=== PATIENT | male | born 1960 | race Caucasian/White ===

== ENCOUNTER 2018-02-01 13:45 | Observation (INO) ==
[2018-02-01 14:26] LABS: Basophils % 0.4 %; Eosinophils # 0.1 K/mcL (0.0-0.6); Eosinophils % 1.2 %; Hemoglobin 16.9 g/dL (12.9-16.9); Immature Granulocytes % 0.3 % (0-4); Lymphocytes # 1.5 K/mcL (0.6-4.6); Lymphocytes % 22.5 %; Mean Corpuscular HGB Conc 32.5 g/dL (31.6-35.5); Mean Corpuscular Hemoglobin 27.3 pg (28.0-33.3); Mean Platelet Volume 10.3 fL (9.4-12.4); Monocytes # 0.5 K/mcL (0.0-1.3); Monocytes % 7.9 %; Neutrophils # 4.5 K/mcL (1.6-8.9); Platelet Count 242 K/mcL (140-400); Red Blood Count 6.19 M/mcL (4.19-5.50); Red Cell Distribution Width 13.1 % (11.5-14.5); Segmented Neutrophils % 67.7 %
[2018-02-01 14:45] LABS: Troponin I < 0.03 ng/mL (< 0.04)
[2018-02-01] MEDS ORDERED: Aspirin 81 MG TAB.CHEW PO ONE (14:50)
[2018-02-01] MEDS ORDERED: 0.9 % Sodium Chloride 1,000 ML IVC ONE (14:51)
--- NOTE | 2018-02-01 14:57 | Emergency Department Note ---
Disposition Clinical Impression: Chest pain Qualifiers: Chest pain type: unspecified Qualified Code(s): R07.9 - Chest pain, unspecified Disposition: Admitted As Inpatient Condition: Fair Referrals: Fausto Palacios MD [Primary Care Provider] - Forms: ED Satisfaction Letter Time of Disposition: 16:04 Chest Pain HPI - General Chief Complaint: ED Chest Pain Stated Complaint: chest pain Time Seen by Provider: 02/01/18 14:35 Source: patient Limitations: no limitations Vital Signs Reviewed: Yes Nursing Notes Reviewed: Yes - History of Present Illness HPI Narrative: Patient is a 57-year-old male complains of acute onset of chest pain 2 hours ago. Patient states he has a history of prior stent placement 2 here at [facility] and was taken off Plavix 1 week ago. Patient states pain throughout 6 out of 10 that is a combination of sharp and burning sensation with radiation to his left armpit and left upper extremity. Patient states she has never had pain like this before and also admits to onset of some diaphoresis and feeling clammy. Patient also has history for diabetes, hypertension, hypercholesterolemia He states he has a history of anxiety as well but this feels different Severity scale (1-10): 3 - Related Data Home Medications Medication Instructions Recorded Confirmed Aspirin Enteric Coated [Aspirin EC] 81 mg PO DAILY 07/12/15 02/01/18 Escitalopram [Lexapro] 10 mg PO DAILY 07/12/15 02/01/18 Folic Acid 0.4 mg PO DAILY 07/12/15 02/01/18 Insulin Glargine,Hum.rec.anlog 80 unit SQ DAILY 07/12/15 02/01/18 [Lantus Solostar] Multivit with Iron-Minerals 1 each PO DAILY 07/12/15 02/01/18 [Compete] Pantoprazole Sodium 40 mg PO DAILY 07/12/15 02/01/18 Empagliflozin [Jardiance] 25 mg PO DAILY 02/01/18 02/01/18 Liraglutide [Victoza 3-Vito] 1.8 mg IJ DAILY 02/01/18 02/01/18 Lisinopril-HCTZ 10-12.5 [Prinzide 1 tab PO DAILY 02/01/18 02/01/18 10-12.5] Metformin HCl [Metformin HCl ER] 500 mg PO BID 02/01/18 02/01/18 Tramadol HCl [Ultram] 50 mg PO Q6H PRN 02/01/18 02/01/18 Previous Rx's Medication Instructions Recorded Atorvastatin [Lipitor] 80 mg PO HS #30 tablet 07/13/15 Clopidogrel [Plavix] 75 mg PO DAILY #30 tablet 07/13/15 Metoprolol [Lopressor] 25 mg PO BID #60 tablet 07/13/15 Allergies Allergy/AdvReac Type Severity Reaction Status Date / Time No Known Allergies Allergy Verified 02/01/18 14:02 All systems ED: reviewed and negative except as stated. Review of Systems: As Per HPI Constitutional: Denies: fever, chills, weakness ENT ED: Denies: congestion Cardiovascular: Reports: chest pain Respiratory: Denies: cough, dyspnea Gastrointestinal: Denies: abdominal pain Musculoskeletal: Denies: back pain Chest Pain PMH - Past Medical History Medical history: Reports: diabetes, hypertension Psychiatric history: Reports: anxiety - Social History Smoking Status: Never smoker Alcohol use: Reports: occasionally Drug use: Reports: none Physical Exam Vital Signs Temperature 99.0 F 02/01/18 13:58 Pulse Rate 80 02/01/18 13:58 Respiratory Rate 16 02/01/18 13:58 Blood Pressure 150/90 02/01/18 13:58 O2 Sat by Pulse Oximetry 97 02/01/18 13:58 Temperature 99.0 F 02/01/18 13:58 Pulse Rate 80 02/01/18 13:58 Respiratory Rate 16 02/01/18 13:58 Blood Pressure 150/90 02/01/18 13:58 O2 Sat by Pulse Oximetry 97 02/01/18 13:58 Oxygen Delivery Oxygen Delivery Room Air CONSTITUTIONAL: Well-appearing; well-nourished; A&O X 3, in no apparent distress HEAD: Normocephalic; atraumatic EYES: PERRL, no scleral icterus NOSE: The nose is normal in appearance without rhinorrhea NECK: No JVD or distended neck veins RESP: Normal chest excursion with respiration; breath sounds clear and equal bilaterally; no wheezes, rhonchi, or rales CARD: Regular rhythm, without murmurs, rub or gallop ABD: Non-distended; non-tender, soft, without rigidity, rebound or guarding,no pulsatile mass CHEST: No pain with palpation SKIN: Normal for age and race; warm and dry without diaphoresis ; no apparent lesions EXTREMITIES: Pulses are 2 plus and equal times 4 extremities, no peripheral edema or calf muscle pain - General Limitations: no limitations General appearance: alert, in no apparent distress Course Vital Signs Temperature 99.0 F 02/01/18 13:58 Pulse Rate 80 02/01/18 13:58 Respiratory Rate 16 02/01/18 13:58 Blood Pressure 150/90 02/01/18 13:58 O2 Sat by Pulse Oximetry 97 02/01/18 13:58 Temperature 99.0 F 02/01/18 13:58 Pulse Rate 72 02/01/18 15:53 Respiratory Rate 15 02/01/18 15:53 Blood Pressure 131/80 02/01/18 15:53 O2 Sat by Pulse Oximetry 98 02/01/18 15:53 Oxygen Delivery Oxygen Delivery Room Air Chest Pain - MDM Narrative Medical decision making narrative: Patient presents with concern for possible ACS/GA, patient denies any symptoms of shortness of breath or dyspnea on exertion for possible PE, patient also is low risk under Wells P criteria. Patient has no radiation of pain symptoms to his back or tearing sensation states his chest, as well as no pulse discrepancies for aortic dissection. Patient's labs were negative for any elevation of troponin or other lab abnormalities are clinically pertinent. Patient's pain symptoms were removed with nitroglycerin 0.4 milligrams sublingual 3. He reported a burning sensation around his stomach area and was given a GI cocktail as well. Also, EKG was nonischemic. Given patient's history and heart score of 6 and prior stenting, I feel it necessary patient to be admitted for continued cardiac evaluation. Patient understands and agrees to treatment plan. Dr. Kong the hospitalist has accepted patient for admission to a telemetry bed in stable condition and pain free. - Lab Data Lab results reviewed: Yes I reviewed the patient's lab results. Lab results narrative: Short CBC 02/01/18 Range/Units 14:05 WBC 6.7 (4.3-11.1) K/mcL Hgb 16.9 (12.9-16.9) g/dL Hct 52.0 H (37.5-50.1) % Plt Count 242 (140-400) K/mcL Neutrophils # 4.5 (1.6-8.9) K/mcL BMP 02/01/18 Range/Units 14:05 Sodium 136 (136-145) mEq/L Potassium 4.5 (3.5-5.1) mEq/L Chloride 102 (98-107) mEq/L Carbon Dioxide 24 (23-29) mEq/L BUN 20 (6-20) mg/dL Creatinine 0.89 (0.70-1.30) mg/dL Glucose 303 H (70-105) mg/dL Calcium 9.9 (8.6-10.3) mg/dL Cardiac Enzymes 02/01/18 Range/Units 14:05 Troponin I < 0.03 (< 0.04) ng/mL Result diagrams: 02/01/18 14:05 02/01/18 14:05 Lab Results 02/01/18 02/01/18 Range/Units 14:05 14:05 WBC 6.7 (4.3-11.1) K/mcL RBC 6.19 H (4.19-5.50) M/mcL Hgb 16.9 (12.9-16.9) g/dL Hct 52.0 H (37.5-50.1) % MCV 84.0 (83.0-100.0) fL MCH 27.3 L (28.0-33.3) pg MCHC 32.5 (31.6-35.5) g/dL RDW 13.1 (11.5-14.5) % Plt Count 242 (140-400) K/mcL MPV 10.3 (9.4-12.4) fL Immature Gran % 0.3 (0-4) % Seg Neutrophils % 67.7 % Lymphocytes % 22.5 % Monocytes % 7.9 % Eosinophils % 1.2 % Basophils % 0.4 % Neutrophils # 4.5 (1.6-8.9) K/mcL Lymphocytes # 1.5 (0.6-4.6) K/mcL Monocytes # 0.5 (0.0-1.3) K/mcL Eosinophils # 0.1 (0.0-0.6) K/mcL Basophils # 0.0 (0.0-0.2) K/mcL Sodium 136 (136-145) mEq/L Potassium 4.5 (3.5-5.1) mEq/L Chloride 102 (98-107) mEq/L Carbon Dioxide 24 (23-29) mEq/L BUN 20 (6-20) mg/dL Creatinine 0.89 (0.70-1.30) mg/dL Est GFR ( Amer) > 60 (> 60) Est GFR (Non-Af Amer) > 60 (> 60) BUN/Creatinine Ratio 22 (6-26) Glucose 303 H (70-105) mg/dL Calculated Osmolality 296 (280-300) Calcium 9.9 (8.6-10.3) mg/dL Troponin I < 0.03 (< 0.04) ng/mL - Radiology Data Radiology results reviewed: Yes I reviewed the patient's radiology results. Chest X-Ray 02/01/18 14:02 IMPRESSION: No acute cardiopulmonary disease. D/ / Reji Shelton MD / Reji Shelton MD Interpreting Provider: Reji Shelton MD - EKG Data EKG attestation: Yes I reviewed and interpreted this EKG. EKG results narrative: EKG taken 02/01/2018 at 1351 hrs. shows a sinus rhythm at a rate of 91 beats minute with no acute ST elevations or depressions and any meats, no cures Mariia QT prolongation. His also low voltage in leads 3. In compared to previous EKG taken 02/07/[address] elevations or depressions, or QRS widening, QT prolongation can be seen Heart Score - Score History: Highly Suspicious EKG: Non Specific repolarisation Disturbance Age: 45-65 Risk Factors: Equal/Greater than 3 risk factor or history of atherosclerotic disease Troponin: Less than normal limit HEART Score Total: 6
[2018-02-01 15:05] LABS: BUN/Creatinine Ratio 22 (6-26); Blood Urea Nitrogen 20 mg/dL (6-20); Calcium 9.9 mg/dL (8.6-10.3); Carbon Dioxide 24 mEq/L (23-29); Chloride 102 mEq/L (98-107); Glucose 303 mg/dL (70-105); Osmolality,Calculated 296 (280-300); Potassium 4.5 mEq/L (3.5-5.1); Sodium 136 mEq/L (136-145); eGFR For African Americans > 60 (> 60); eGFR For Non-African Americans > 60 (> 60)
[2018-02-01] MEDS: Nitroglycerin 0.4 MG TAB.SUBL SL PRN ×3 (15:11→15:24)
[2018-02-01] MEDS ORDERED: GI Cocktail 40 ML EACH PO ONE (15:37)
--- NOTE | 2018-02-01 15:56 | Emergency Department Note ---
Disposition Clinical Impression: Chest pain Qualifiers: Chest pain type: unspecified Qualified Code(s): R07.9 - Chest pain, unspecified Disposition: Admitted As Inpatient Condition: Fair Referrals: Fausto Palacios MD [Primary Care Provider] - Forms: ED Satisfaction Letter General Adult HPI - General Chief complaint: ED Chest Pain Stated complaint: chest pain Time Seen by Provider: 02/01/18 14:35 Source: patient Limitations: no limitations - History of Present Illness Pain Scale: 3 - Related Data Home Medications Medication Instructions Recorded Confirmed Aspirin Enteric Coated [Aspirin EC] 81 mg PO DAILY 07/12/15 02/01/18 Escitalopram [Lexapro] 10 mg PO DAILY 07/12/15 02/01/18 Folic Acid 0.4 mg PO DAILY 07/12/15 02/01/18 Insulin Glargine,Hum.rec.anlog 80 unit SQ DAILY 07/12/15 02/01/18 [Lantus Solostar] Multivit with Iron-Minerals 1 each PO DAILY 07/12/15 02/01/18 [Compete] Pantoprazole Sodium 40 mg PO DAILY 07/12/15 02/01/18 Empagliflozin [Jardiance] 25 mg PO DAILY 02/01/18 02/01/18 Liraglutide [Victoza 3-Vito] 1.8 mg IJ DAILY 02/01/18 02/01/18 Lisinopril-HCTZ 10-12.5 [Prinzide 1 tab PO DAILY 02/01/18 02/01/18 10-12.5] Metformin HCl [Metformin HCl ER] 500 mg PO BID 02/01/18 02/01/18 Tramadol HCl [Ultram] 50 mg PO Q6H PRN 02/01/18 02/01/18 Previous Rx's Medication Instructions Recorded Atorvastatin [Lipitor] 80 mg PO HS #30 tablet 07/13/15 Clopidogrel [Plavix] 75 mg PO DAILY #30 tablet 07/13/15 Metoprolol [Lopressor] 25 mg PO BID #60 tablet 07/13/15 Allergies Allergy/AdvReac Type Severity Reaction Status Date / Time No Known Allergies Allergy Verified 02/01/18 14:02 Constitutional: Denies: fever, chills, weakness ENT ED: Denies: congestion Cardiovascular: Reports: chest pain Respiratory: Denies: cough, dyspnea Gastrointestinal: Denies: abdominal pain Musculoskeletal: Denies: back pain Past Medical History - Past Medical History Medical history: Reports: diabetes, hypertension Psychiatric history: Reports: anxiety - Social History Smoking Status: Never smoker Smokeless Tobacco Status: Yes (rarely) Alcohol use: Reports: occasionally Drug use: Reports: none Physical Exam - General Limitations: no limitations General appearance: alert, in no apparent distress Course Vital Signs Temperature 99.0 F 02/01/18 13:58 Pulse Rate 80 02/01/18 13:58 Respiratory Rate 16 02/01/18 13:58 Blood Pressure 150/90 02/01/18 13:58 O2 Sat by Pulse Oximetry 97 02/01/18 13:58 Temperature 99.0 F 02/01/18 13:58 Pulse Rate 72 02/01/18 15:53 Respiratory Rate 15 02/01/18 15:53 Blood Pressure 131/80 02/01/18 15:53 O2 Sat by Pulse Oximetry 98 02/01/18 15:53 Oxygen Delivery Oxygen Delivery Room Air Medical Decision Making - Lab Data Result diagrams: 02/01/18 14:05 02/01/18 14:05 Lab Results 02/01/18 02/01/18 Range/Units 14:05 14:05 WBC 6.7 (4.3-11.1) K/mcL RBC 6.19 H (4.19-5.50) M/mcL Hgb 16.9 (12.9-16.9) g/dL Hct 52.0 H (37.5-50.1) % MCV 84.0 (83.0-100.0) fL MCH 27.3 L (28.0-33.3) pg MCHC 32.5 (31.6-35.5) g/dL RDW 13.1 (11.5-14.5) % Plt Count 242 (140-400) K/mcL MPV 10.3 (9.4-12.4) fL Immature Gran % 0.3 (0-4) % Seg Neutrophils % 67.7 % Lymphocytes % 22.5 % Monocytes % 7.9 % Eosinophils % 1.2 % Basophils % 0.4 % Neutrophils # 4.5 (1.6-8.9) K/mcL Lymphocytes # 1.5 (0.6-4.6) K/mcL Monocytes # 0.5 (0.0-1.3) K/mcL Eosinophils # 0.1 (0.0-0.6) K/mcL Basophils # 0.0 (0.0-0.2) K/mcL Sodium 136 (136-145) mEq/L Potassium 4.5 (3.5-5.1) mEq/L Chloride 102 (98-107) mEq/L Carbon Dioxide 24 (23-29) mEq/L BUN 20 (6-20) mg/dL Creatinine 0.89 (0.70-1.30) mg/dL Est GFR ( Amer) > 60 (> 60) Est GFR (Non-Af Amer) > 60 (> 60) BUN/Creatinine Ratio 22 (6-26) Glucose 303 H (70-105) mg/dL Calculated Osmolality 296 (280-300) Calcium 9.9 (8.6-10.3) mg/dL Troponin I < 0.03 (< 0.04) ng/mL Attestation Statement - Attestation Attestation: I examined this patient and my medical decision-making was reviewed with the Resident Physician. I agree with the documented findings, disposition and treatment plan as described except to the extent set forth below. 57 year old male presents to the ED with complaints of chest pain that is ismliar to her episodes in the past. PAtient states it has been getting progresssively worse with radtion and numbness.tingling of his left arm. Wew ill admit to medicine for cp r/o ACS. PAtinet troponin is negatie, EKG at baseline
--- NOTE | 2018-02-01 17:11 | Internal Med History&Physical ---
Date of Encounter: 02/01/18 Time of Encounter: 16:15 Assessment and Plan (1) Chest pain Current visit: Yes Status: Acute Patient presenting with central chest pressure that relieved with nitroglycerin. High suspicion for ACS and angina. Will monitor with telemetry. Trend troponins. If troponins are negative he will need a stress test tomorrow. Continue nitroglycerin as needed for pain. Continue aspirin. Was recently taken off Plavix. Will hold off on resuming this medication for now. Consider cardiology consult prior to discharge if stress test is negative to discuss about continuing Plavix. Monitor vital signs closely. Check lipid profile. Check A1c. high risk for complications. Qualifiers: Chest pain type: precordial pain Qualified Code(s): R07.2 - Precordial pain (2) Diabetes mellitus Current visit: Yes Status: Chronic Blood sugars are elevated. Check A1c. Monitor blood sugars and start patient on sliding scale insulin in addition to long-acting insulin coverage. 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 Continue home medications. Currently having chest pain. Management as above. Qualifiers: Coronary Disease-Associated Artery/Lesion type: [place] artery [place] vs. transplanted heart: [place] heart Associated angina: with stable angina Qualified Code(s): I25.118 - Atherosclerotic heart disease of [place] coronary artery with other forms of angina pectoris (4) Hypertension Current visit: Yes Status: Chronic Blood pressure was elevated initially. It has improved now. Will resume home medications. Monitor blood pressure closely. Qualifiers: Hypertension type: essential hypertension Qualified Code(s): I10 - Essential (primary) hypertension Internal Medicine - H&P: HPI Chief complaint: Chest pressure Admitted From: Emergency Dept Plans for Post Hospital Care: Home History of present illness: Mr. Montilla is a 57 year old male patient with history of coronary artery disease status post prior stents, diabetes, hypertension who presented to the ER with complaints of chest pressure that began at around 12:30 to 1 PM this afternoon. It was associated with some burning and began to radiate to his left axilla. He also felt some pain in his upper arm. He denies any palpitations. Did have mild shortness of breath associated with it. No fever or chills. No nausea or vomiting. His pain has improved after he received 3 doses of nitroglycerin and is now completely gone. He had a stent 2 years back and was on aspirin and Plavix until he was taken off Plavix 2 weeks back. He had undergone left heart catheterization then due to an abnormal stress test. Past Med Surg Social Fam HX - Past Medical History Attestation: Yes The following information was validated with the patient. Source: patient Medical history: diabetes, hypertension Psychiatric history: anxiety - Social History Smoking Status: Never smoker Smokeless Tobacco Status: Yes (rarely) Alcohol use: occasionally Drug use: none - Family History Father Adopted: No Living Status: Hx Family Cardiac Disorders: Yes Hx Family Respiratory Disorders: No Hx Family Cancer: Yes Hx Family GI Disorders: No Hx Family Endocrine Disorder: Yes Hx Family Neuromuscular Disorders: No Hx Family Neurologic Disorders: No Hx Family HEENT Disorders: No Hx Family Autoimmune Disorders: No - Additional Family History Additional family history: Reviewed with patient and found to be noncontributory at this time Internal Medicine - H&P: Meds Aspirin Enteric Coated [Aspirin EC] 81 mg PO DAILY 07/12/15 [History] Escitalopram [Lexapro] 10 mg PO DAILY 07/12/15 [History] Folic Acid 0.4 mg PO DAILY 07/12/15 [History] Insulin Glargine,Hum.rec.anlog [Lantus Solostar] 80 unit SQ DAILY 07/12/15 [ History] Multivit with Iron-Minerals [Compete] 1 each PO DAILY 07/12/15 [History] Pantoprazole Sodium 40 mg PO DAILY 07/12/15 [History] Atorvastatin [Lipitor] 80 mg PO HS #30 tablet 07/13/15 [Rx] Clopidogrel [Plavix] 75 mg PO DAILY #30 tablet 07/13/15 [Rx] Metoprolol [Lopressor] 25 mg PO BID #60 tablet 07/13/15 [Rx] Empagliflozin [Jardiance] 25 mg PO DAILY 02/01/18 [History] Liraglutide [Victoza 3-Vito] 1.8 mg IJ DAILY 02/01/18 [History] Lisinopril-HCTZ 10-12.5 [Prinzide 10-12.5] 1 tab PO DAILY 02/01/18 [History] Metformin HCl [Metformin HCl ER] 500 mg PO BID 02/01/18 [History] Tramadol HCl [Ultram] 50 mg PO Q6H PRN 02/01/18 [History] 3 Allergy/AdvReac Type Severity Reaction Status Date / Time No Known Allergies Allergy Verified 02/01/18 14:02 All Systems PM: A 10-system review of systems was performed and is negative for pertinent findings except as documented above in the HPI. - Constitutional Constitutional: no chills, no fever(s), no night sweats - EENT Eyes: no change in vision, no discharge, no pain, no photophobia Ears: no ear discharge, no ear pain, no tinnitus Nose, mouth and throat: no dysphagia, no nasal discharge, no neck pain, no sore throat - Cardiovascular Cardiovascular ROS IM: chest pain, no diaphoresis, no dyspnea, no lightheadedness, no palpitations, no syncope - Respiratory Respiratory: no cough, no dyspnea, no wheezing, no excessive phlegm production - Gastrointestinal Gastrointestinal: no abdominal pain, no diarrhea, no hematemesis, no hematochezia, no melena, no nausea, no vomiting - Musculoskeletal Musculoskeletal ROS IM: no numbness, no tingling - Integumentary Integumentary IM: no rash, no unusual bruising - Neurological Neurological ROS: no confusion, no convulsions, no focal weakness, no numbness, no tingling, no tremor(s) - Hematologic/Lymphatic Hematologic/Lymphatic: no easy bruising - Constitutional Vitals: Temp Pulse Resp BP Pulse Ox 99.0 F 76 15 124/84 16 02/01/18 13:58 02/01/18 16:39 02/01/18 16:39 02/01/18 16:39 02/01/18 16:39 General appearance: Present: cooperative, mild distress, A&O X 3, answers questions appropriately - Eye Eye exam: Present: EOMI, PERRL, conjuntiva pink, sclera anicteric - Neck Neck exam general surgery: Present: supple, trachea midline. Absent: lymphadenopathy - Respiratory Respiratory exam: Present: CTAB. Absent: accessory muscle use, rales, rhonchi, wheezes - Cardiovascular Cardiovascular exam: Present: RRR, +S1, +S2. Absent: diastolic murmur, gallop, rubs, systolic murmur - GI/Abdominal GI/Abdominal exam: Present: normal bowel sounds, soft, no peritoneal signs. Absent: distended, tenderness - Extremities Exam Extremities exam: Present: warm, radial pulses palpable and symmetrical. Absent : calf tenderness, cyanotic, pedal edema - Neurological Exam Neurological exam: Present: alert, CN II-XII intact, oriented X3, no focal deficits. Absent: facial droop, speech deficit - Skin Skin exam: Present: dry, intact Internal Med - H&P Results - Labs CBC & Chem 7: 02/01/18 14:05 02/01/18 14:05 - EKG Data -: EKG Interpreted by Myself EKG shows normal: sinus rhythm - EKG Data Interpretation IM: normal EKG
[2018-02-01] MEDS ORDERED: Naloxone 0.4 MG/ML INJ IVP PRN (17:18)
[2018-02-01] MEDS ORDERED: Acetaminophen 325 MG TABLET PO PRN (17:18)
[2018-02-01] MEDS ORDERED: *HR* Dextrose 50 % in Water (Syg) 50 ML SYRINGE IVP PRN (17:19)
[2018-02-01] MEDS ORDERED: Dextrose Gel 15 GM/37.5 ML TUBE PO PRN ×2 (17:19)
[2018-02-01] MEDS ORDERED: D5% in Water 1,000 ML IVC PRN (17:19)
[2018-02-01] MEDS: Insulin LISPRO 300 UNITS/3 ML VIAL SQ SCH ×2 (18:11→21:13)
[2018-02-01] MEDS: Insulin DETEMIR 100 UNIT/ML X5UNITS SQ SCH (21:14)
[2018-02-01 23:21] LABS: Estimated Average Glucose 171 mg/dl; Hemoglobin A1C 7.6 %
[2018-02-02 01:53] LABS: Chol/HDL Ratio 3.3 (0-4.9)
[2018-02-02] MEDS ORDERED: Regadenoson 0.4 MG/5 ML SYRINGE IVP ONE (05:45)
[2018-02-02] MEDS: Insulin LISPRO 300 UNITS/3 ML VIAL SQ SCH ×4 (10:02→22:30)
--- NOTE | 2018-02-02 13:06 | Cardiology Consult Note ---
Date of Encounter: 02/02/18 Time of Encounter: 11:30 Assessment and Plan (1) NSTEMI (non-ST elevated myocardial infarction) Current Visit: Yes Status: Acute Per cardiology: -Troponins negative x2, then 0.27 x2. -Known CAD. -Recently stopped plavix, had met criteria to stop plavix. -Exertional chest pain. -CHest pain free now. -No acute ischemic changes. -Suspect will need LHC. RIsks versus benefits of LHC explained to pateint. States understanding and agreeable to proceed. (2) CAD (coronary artery disease) Current Visit: Yes Status: Chronic Per cardiology: -Known history of CAD s/p LHC 2014 with 90% proximal LAD with SUMIT placed x2, 80 % mid LAD, 30% distal LAD, 70% ramus stenosis, 40% mid circumflex, 50-60% left PDA, 40% proximal RCA, 40% mid RCA, RPDA with mild disease. -TTE with LVEF preserved, no segmental wall motion abnormalities. -On asa, statin, beta bart, plavix. -Suspect will need LHC. Qualifiers: Coronary Disease-Associated Artery/Lesion type: [place] artery [place] vs. transplanted heart: [place] heart Associated angina: angina presence unspecified Qualified Code(s): I25.10 - Atherosclerotic heart disease of [place] coronary artery without angina pectoris Discussion w patient/family: The assessment and plan as outlined above was discussed with the patient who expressed understanding and agreement. All questions were answered. Thank you for involving us in the care of your patient. Please call with any questions. DIscussed and reviewed with . History of Present Illness Consult date: 02/02/18 Requesting physician: Genie Heaton Consult reason: elevated troponin Chief complaint: chest pain History of present illness: Mr. Montilla is a 57 year old male with a relevant past medical history of CAD s/ p PCI, HTN, hyperlipidemia, DM. Patient presented to [facility] with complaints of chest pain. Patient reports he stopped taking plavix one week ago and since then had noticed increase in fatigue. Patient states yesterday while walking around [employer], he had midsternal chest pain. Patient states pain persisted until he came to ER and was given 3 nitroglycerin. Patient denies current chest pain. Denies shortness of breath. Past Med Surg Social Fam HX - Past Medical History Attestation: Yes The following information was validated with the patient. Source: patient, old records reviewed Medical history: coronary artery disease, diabetes, hypertension Psychiatric history: anxiety - Social History Smoking Status: Never smoker Smokeless Tobacco Status: Yes (rarely) Alcohol use: occasionally Drug use: none - Family History Mother Living Status: Age at : 63 Cause of : [place] Hx Family Cardiac Disorders: Yes Hx Family Respiratory Disorders: No Hx Family Cancer: No Hx Family GI Disorders: No Hx Family Genitourinary Disorders: No Hx Family Endocrine Disorder: Yes (DM type 2) Hx Family Musculoskeletal Disorders: No Hx Family Neuromuscular Disorders: No Hx Family Neurologic Disorders: No Hx Family HEENT Disorders: No Hx Family Autoimmune Disorders: No Hx Family Reproductive Disorders: No Hx Family Psychosocial Disorders: No Hx Family Medical Disorders: No Father Adopted: No Living Status: Age at : 79 Cause of : [place] Hx Family Cardiac Disorders: Yes Hx Family Respiratory Disorders: No Hx Family Cancer: No Hx Family GI Disorders: No Hx Family Genitourinary Disorders: No Hx Family Endocrine Disorder: Yes (DM type 2) Hx Family Musculoskeletal Disorders: No Hx Family Neuromuscular Disorders: No Hx Family Neurologic Disorders: No Hx Family HEENT Disorders: No Hx Family Autoimmune Disorders: No Hx Family Reproductive Disorders: No Hx Family Psychosocial Disorders: No Hx Family Medical Disorders: No Medications and Allergies Aspirin Enteric Coated [Aspirin EC] 81 mg PO DAILY 07/12/15 [History] Escitalopram [Lexapro] 10 mg PO DAILY 07/12/15 [History] Folic Acid 0.4 mg PO DAILY 07/12/15 [History] Insulin Glargine,Hum.rec.anlog [Lantus Solostar] 80 unit SQ DAILY 07/12/15 [ History] Multivit with Iron-Minerals [Compete] 1 each PO DAILY 07/12/15 [History] Pantoprazole Sodium 40 mg PO DAILY 07/12/15 [History] Atorvastatin [Lipitor] 80 mg PO HS #30 tablet 07/13/15 [Rx] Clopidogrel [Plavix] 75 mg PO DAILY #30 tablet 07/13/15 [Rx] Metoprolol [Lopressor] 25 mg PO BID #60 tablet 07/13/15 [Rx] Empagliflozin [Jardiance] 25 mg PO DAILY 02/01/18 [History] Liraglutide [Victoza 3-Vito] 1.8 mg IJ DAILY 02/01/18 [History] Lisinopril-HCTZ 10-12.5 [Prinzide 10-12.5] 1 tab PO DAILY 02/01/18 [History] Metformin HCl [Metformin HCl ER] 500 mg PO BID 02/01/18 [History] Tramadol HCl [Ultram] 50 mg PO Q6H PRN 02/01/18 [History] 3 Allergy/AdvReac Type Severity Reaction Status Date / Time No Known Allergies Allergy Verified 02/01/18 14:02 All Systems Review: The remainder of the systems were reviewed and are negative - Constitutional Constitutional: fatigue - Cardiovascular Cardiovascular: as per HPI, chest pain with exertion Physical Examination Vital Signs, Last 4 Hours Temp Pulse Resp BP Pulse Ox 02/02/18 11:19 98.5 F 72 20 128/83 96 General: Conversant, No Apparent Distress HEENT: Atraumatic, Normocephaly, Mucus Membranes Moist Neck: No JVD, Normal carotid pulses Cardiac: Reg Rate and Rhythm, Normal S1 and S2, No Murmur Lungs: Normal Breath Sounds, No Wheeze, Rales, Rhonchi Neuro: Alert and responsive, No focal deficits noted Abdomen: Soft, Non-Tender Skin: No rashes noted on visualized skin Musculoskeletal: No Chest Wall Tenderness Extremities: No Clubbing, No Cyanosis, No Edema, Normal Pulses Results 02/01/18 14:05 02/01/18 14:05 Lab Results Impressions Chest X-Ray 02/01/18 14:02 IMPRESSION: No acute cardiopulmonary disease. D/ / Reji Shelton MD / Reji Shelton MD Interpreting Provider: Reji Shelton MD Echocardiogram 02/02/18 09:00 Impressions: LVEF 60%. Normal right ventricular structure and function. No significant valvular dysfunction. No pulmonary hypertension. Left Ventricular Wall Motion: Rest Echo Findings All wall segments showed normal motion. Findings: Study Quality * Technically adequate exam. ECG Findings * Normal sinus rhythm. Left Ventricle * LVEF 60%. * Normal LV chamber size, wall thickness and function. * Indeterminate diastolic function. Right Ventricle * Normal right ventricular structure and function. Left Atrium * Normal left atrial size. Right Atrium * Normal right atrial size. Aortic Valve * No aortic regurgitation. * Aortic valve not well visualized. * No aortic stenosis. Mitral Valve * No mitral stenosis. * Trace mitral regurgitation. * Normal mitral valve structure. Tricuspid Valve * Tricuspid valve not well visualized. * Trace tricuspid regurgitation. * Estimated RA pressure is 3 mmHg. * Estimated RVSP is 14 mmHg. * No pulmonary hypertension. Pulmonic Valve * Pulmonic valve is not well visualized. * No pulmonic stenosis. * Trace pulmonic regurgitation. Pulmonary Artery * Pulmonary artery not well visualized. Aorta * Normally sized aortic root. Pericardium * There is no pericardial effusion present. Interatrial Septum * No evidence of PFO by color Doppler. IVC * Normal IVC dimensions and inspiratory collapse. Active Medications Acetaminophen (Tylenol) 650 mg PO Q6HR PRN PRN Reason: Mild Pain/Fever Stop: 08/03/18 17:19 Aspirin (Aspirin Ec) 81 mg PO DAILY [facility]AL[facility] Stop: 08/04/18 09:01 Atorvastatin Calcium (Lipitor) 80 mg PO HS NATALY Stop: 08/03/18 21:01 Last Admin: 02/01/18 20:25 Dose: 80 mg Clopidogrel Bisulfate (Plavix) 75 mg PO DAILY NATALY Stop: 08/04/18 09:01 Dextrose/Water (Dextrose 50% (Syg)) 25 ml IVP AD PRN PRN Reason: Hypoglycemia Stop: 08/03/18 17:20 Escitalopram Oxalate (Lexapro) 10 mg PO DAILY NATALY Stop: 08/04/18 09:01 Folic Acid (Folic Acid) 0.4 mg PO DAILY NATALY Stop: 08/04/18 09:01 Glucagon (Glucagen) 1 mg IM ONCE PRN PRN Reason: Hypoglycemia Stop: 08/03/18 17:20 Glucose (Gluctose) 15 gm PO ONCE PRN PRN Reason: Hypoglycemia Stop: 08/03/18 17:20 Glucose (Gluctose) 30 gm PO ONCE PRN PRN Reason: Hypoglycemia Stop: 08/03/18 17:20 Lisinopril/HCTZ (Prinzide 10-12.5) 1 each PO DAILY NATALY Stop: 08/04/18 09:01 Dextrose (Dextrose 5%) 1,000 mls @ 100 mls/hr IVC .Q10H PRN PRN Reason: HYPOGLYCEMIA Stop: 08/03/18 17:20 Insulin Detemir (Levemir) 40 unit SQ BID [facility] Stop: 08/03/18 21:01 Last Admin: 02/01/18 21:14 Dose: 40 unit Insulin Human Lispro (Humalog) 0 units SQ HS [facility] PRN Reason: Protocol Stop: 08/03/18 21:01 Last Admin: 02/01/18 21:13 Dose: 5 units Insulin Human Lispro (Humalog) 0 units SQ TIDAC [facility] PRN Reason: Protocol Stop: 08/03/18 17:31 Last Admin: 02/02/18 10:02 Dose: Not Given Metoprolol Tartrate (Lopressor) 25 mg PO BID [facility] Stop: 08/03/18 21:01 Last Admin: 02/01/18 20:25 Dose: 25 mg Multivitamins/Calcium (Thera M Plus) 1 tab PO DAILY [facility] Stop: 08/04/18 09:01 Naloxone HCl (Narcan) 0.4 mg IVP Q2MIN PRN PRN Reason: SEE COMMENTS Stop: 08/03/18 17:19 Nitroglycerin (Nitroglycerin) 0.4 mg SL Q5MIN PRN PRN Reason: Chest Pain Stop: 08/03/18 14:52 Last Admin: 02/01/18 15:24 Dose: 0.4 mg Omeprazole (Prilosec) 40 mg PO DAILY [facility] Stop: 08/04/18 09:01 Tramadol HCl (Ultram) 50 mg PO Q6H PRN PRN Reason: Moderate Pain Stop: 08/03/18 17:21 Laboratory Tests 02/01/18 02/01/18 02/01/18 14:05 14:05 18:26 Hgb 16.9 Creatinine 0.89 Troponin I < 0.03 < 0.03 02/02/18 02/02/18 01:11 07:23 Hgb Creatinine Troponin I 0.27 H* 0.27 H* - Imaging and Cardiology Chest Xray: report reviewed Echo: report reviewed Cardiac cath: report reviewed - EKG Interpretation EKG results cardiology: personally reviewed (ECG with SR, HR 91.), other ( Telemetry reviewed with average HR previous 12 hours noted to be 62, SR. PVCs noted.) Consult Discharge Plan - Plan Referrals: Fausto Palacios MD [Primary Care Provider] - 02/10/18 5:00 pm
[2018-02-02] MEDS ORDERED: *HR* Heparin 5,000 UNIT/ML VIAL IVP PRN ×2 (13:22)
[2018-02-02] MEDS ORDERED: *HR* Heparin 5,000 UNIT/ML VIAL IVP ONE (13:22)
[2018-02-02] MEDS ORDERED: Heparin 25,000 UNIT/500 ML D5W 25,000 UNIT/500 ML BAG IVC SCH (13:30)
[2018-02-02 13:51] LABS: Hematocrit 51.2 % (37.5-50.1); Hemoglobin 16.9 g/dL (12.9-16.9); Mean Corpuscular Hemoglobin 27.8 pg (28.0-33.3); Mean Corpuscular Volume 84.1 fL (83.0-100.0); Mean Platelet Volume 10.2 fL (9.4-12.4); Platelet Count 231 K/mcL (140-400); Red Blood Count 6.09 M/mcL (4.19-5.50); Red Cell Distribution Width 13.2 % (11.5-14.5)
[2018-02-02 13:55] LABS: INR 1.1; Prothrombin Time 11.5 Seconds (9.4-12.1)
[2018-02-02 13:57] LABS: Activated Partial Thrombo Time 28.5 Seconds (26.0-36.0)
[2018-02-02] MEDS: Aspirin Enteric Coated 81 MG Tablet PO SCH (14:33)
[2018-02-02] MEDS: Multivit/Ca/Min/Fe/FA 1 TAB TABLET PO SCH (14:39)
[2018-02-02] MEDS: Insulin DETEMIR 100 UNIT/ML X5UNITS SQ SCH ×2 (14:39→22:58)
[2018-02-02] MEDS: Folic Acid 1 MG TABLET PO SCH (14:39)
[2018-02-02] MEDS ORDERED: 0.9 % Sodium Chloride 1,000 ML ONE ×2 (16:47→17:31)
--- NOTE | 2018-02-02 17:24 | Pre-Sedation Evaluation ---
Pre-sedation evaluation - Pre-sedation checklist Date of procedure: 02/02/18 Procedure: LEFT HEART CATH Recent Vitals: Last Vital Signs Temp 97.9 F 02/02/18 15:26 Pulse 69 02/02/18 15:26 Resp 20 02/02/18 15:26 BP 139/90 02/02/18 15:26 Pulse Ox 99 02/02/18 15:26 H&P (including ROS) documented in medical record: Yes Previous reaction to sedatives/anesthetics: No Dietary Status: NPO after Midnight Airway Assessment: Patient can open mouth completely, TMJ function normal, Micrognathia (under-bite, receding chin) absent, Neck with adequate range of motion Dentition: No loose teeth or bridges Possible difficult airway: No ASA Classification *see protocol: CLASS II-Mild systemic disease Plan of Care: Pt appropriate candidate for procedure/moderate/conscious sedation , Risks/benefits of procedure/sedation discussed w/ patient/family
[2018-02-02] MEDS ORDERED: Heparin 1,000 UNITS/500 mL 500 ML ONE (17:31)
[2018-02-02] MEDS ORDERED: *HR* Heparin 10,000 UNIT/10 ML VIAL ONE (17:32)
[2018-02-02] MEDS ORDERED: ISOVUE-370 200 ML INFUS..BTL IV ONE (17:32)
[2018-02-02] MEDS ORDERED: Nitroglycerin 1,000 MCG/10 ML VIAL IV ONE (17:32)
[2018-02-02] MEDS ORDERED: *HR* Midazolam HCl 2 MG/2 ML VIAL ONE (18:04)
[2018-02-02] MEDS ORDERED: *HR* FentaNYL (PF) 100 MCG/2 ML VIAL ONE (18:04)
[2018-02-02] MEDS ORDERED: *HR* Ticagrelor 90 MG TABLET ONE (18:42)
[2018-02-02] MEDS ORDERED: *HR* Bivalirudin 250 MG VIAL IVC ONE (18:42)
--- NOTE | 2018-02-02 19:40 | Internal Med Progress Note ---
Date of Encounter: 02/02/18 Time of Encounter: 10:20 - Assessment and plan (1) Chest pain Current Visit: Yes Status: Acute Assessment and plan: Patient admitted for chest pain that was concerning for coronary artery disease , ACS, angina. She had 2 negative troponins, subsequent troponins elevated to 0.24. Chest x-ray was negative. A1c 7.6%, triglycerides elevated at 248, cholesterol within normal limits at 92. He denied any chest pain, pressure, shortness of breath. A stress test was canceled due to elevated troponins. Cardiology was consulted, [facility] performed today. Only sedation note is available at this time. Patient reports a burning in his left chest that radiated to left axilla and left arm. He reports feeling clammy at the time. He denies any shortness of breath, nausea or vomiting. Patient's Plavix was stopped approximately 1 week ago by cardiology, he did remain on aspirin daily. Chest X-Ray 02/01/18 14:02 IMPRESSION: No acute cardiopulmonary disease. D/ / Reji Shelton MD / Reji Shelton MD Interpreting Provider: Reji Shelton MD Echocardiogram 02/02/18 09:00 Impressions: LVEF 60%. Normal right ventricular structure and function. No significant valvular dysfunction. No pulmonary hypertension. Left Ventricular Wall Motion: Rest Echo Findings All wall segments showed normal motion. Findings: Study Quality * Technically adequate exam. ECG Findings * Normal sinus rhythm. Left Ventricle * LVEF 60%. * Normal LV chamber size, wall thickness and function. * Indeterminate diastolic function. Right Ventricle * Normal right ventricular structure and function. Left Atrium * Normal left atrial size. Right Atrium * Normal right atrial size. Aortic Valve * No aortic regurgitation. * Aortic valve not well visualized. * No aortic stenosis. Mitral Valve * No mitral stenosis. * Trace mitral regurgitation. * Normal mitral valve structure. Tricuspid Valve * Tricuspid valve not well visualized. * Trace tricuspid regurgitation. * Estimated RA pressure is 3 mmHg. * Estimated RVSP is 14 mmHg. * No pulmonary hypertension. Pulmonic Valve * Pulmonic valve is not well visualized. * No pulmonic stenosis. * Trace pulmonic regurgitation. Pulmonary Artery * Pulmonary artery not well visualized. Aorta * Normally sized aortic root. Pericardium * There is no pericardial effusion present. Interatrial Septum * No evidence of PFO by color Doppler. IVC * Normal IVC dimensions and inspiratory collapse. Qualifiers: Chest pain type: precordial pain Qualified Code(s): R07.2 - Precordial pain (2) CAD (coronary artery disease) Current Visit: Yes Status: Chronic Assessment and plan: She was prior stents, AR, known coronary artery disease. Patient's Plavix was stopped one week ago, he continues to take aspirin. LHC today. Continue aspirin, Lipitor, Prinzide, beta bart. Qualifiers: Coronary Disease-Associated Artery/Lesion type: [place] artery [place] vs. transplanted heart: [place] heart Associated angina: angina presence unspecified Qualified Code(s): I25.10 - Atherosclerotic heart disease of [place] coronary artery without angina pectoris (3) Diabetes mellitus Current Visit: Yes Status: Chronic Assessment and plan: Uncontrolled diabetes. Hemoglobin A1c is 7.6%. Continue sliding scale insulin , Accu-Cheks before meals and at bedtime, diabetic diet. Qualifiers: Diabetes mellitus type: type 2 Diabetes mellitus lobsterman insulin use: with lobsterman use Diabetes mellitus complication status: with hyperglycemia Qualified Code(s): E11.65 - Type 2 diabetes mellitus with hyperglycemia; Z79.4 - assisted (current) use of insulin; Z79.4 - lobsterman (current) use of insulin; Z79.4 - lobsterman (current) use of insulin; Z79.4 - assisted (current ) use of insulin (4) Hypertension Current Visit: Yes Status: Chronic Assessment and plan: Chronic. Continue home medications. Well controlled in the hospital. Qualifiers: Hypertension type: essential hypertension Qualified Code(s): I10 - Essential (primary) hypertension - Time Spent With Patient less than 15 minutes - Subjective Interval history: Pt was seen and assessed at 1020 a.m. Pt denied chest pain, SOB, n/v, diaphoresis, abd pain. Pt is aware that he will most likely require an LHC today and is in agreement. He denies any other needs or questions and is aware that he will likely be here overnight again. - Constitutional Vitals: Temp Pulse Resp BP Pulse Ox 97.9 F 69 20 139/90 99 02/02/18 15:26 02/02/18 15:26 02/02/18 15:26 02/02/18 15:26 02/02/18 15:26 General appearance: Present: cooperative, mild distress, A&O X 3, answers questions appropriately - Head Head exam: Present: atraumatic, normal inspection, normocephalic - Eye Eye exam: Present: normal appearance, conjuntiva pink, sclera anicteric - Neck Neck exam general surgery: Present: normal inspection, supple, trachea midline - Respiratory Respiratory exam: Present: CTAB. Absent: accessory muscle use, chest wall tenderness, rales, respiratory distress, rhonchi, wheezes - Cardiovascular Cardiovascular exam: Present: RRR, +S1, +S2. Absent: diastolic murmur, gallop, rubs, systolic murmur - GI/Abdominal GI/Abdominal exam: Present: normal bowel sounds, soft. Absent: distended, hepatomegaly, tenderness - Extremities Exam Extremities exam: Present: normal capillary refill, normal inspection, warm, radial pulses palpable and symmetrical. Absent: calf tenderness, cyanotic, pedal edema, tenderness - Neurological Exam Neurological exam: Present: alert, oriented X3, no focal deficits. Absent: facial droop, speech deficit - Skin Skin exam: Present: dry, intact, normal color, warm. Absent: rash Internal Medicine: Result - Labs CBC & Chem 7: 02/02/18 13:34 02/01/18 14:05 Labs: Short CBC 02/02/18 Range/Units 13:34 WBC 6.9 (4.3-11.1) K/mcL Hgb 16.9 (12.9-16.9) g/dL Hct 51.2 H (37.5-50.1) % Plt Count 231 (140-400) K/mcL Cardiac Enzymes 02/02/18 02/02/18 Range/Units 01:11 07:23 Troponin I 0.27 H* 0.27 H* (< 0.04) ng/mL - ABG Interpretation ABG results: PT/INR, D-dimer PT 11.5 Seconds (9.4-12.1) 02/02/18 13:34 - Impressions Impressions Echocardiogram 02/02/18 09:00 Impressions: LVEF 60%. Normal right ventricular structure and function. No significant valvular dysfunction. No pulmonary hypertension. Left Ventricular Wall Motion: Rest Echo Findings All wall segments showed normal motion. Findings: Study Quality * Technically adequate exam. ECG Findings * Normal sinus rhythm. Left Ventricle * LVEF 60%. * Normal LV chamber size, wall thickness and function. * Indeterminate diastolic function. Right Ventricle * Normal right ventricular structure and function. Left Atrium * Normal left atrial size. Right Atrium * Normal right atrial size. Aortic Valve * No aortic regurgitation. * Aortic valve not well visualized. * No aortic stenosis. Mitral Valve * No mitral stenosis. * Trace mitral regurgitation. * Normal mitral valve structure. Tricuspid Valve * Tricuspid valve not well visualized. * Trace tricuspid regurgitation. * Estimated RA pressure is 3 mmHg. * Estimated RVSP is 14 mmHg. * No pulmonary hypertension. Pulmonic Valve * Pulmonic valve is not well visualized. * No pulmonic stenosis. * Trace pulmonic regurgitation. Pulmonary Artery * Pulmonary artery not well visualized. Aorta * Normally sized aortic root. Pericardium * There is no pericardial effusion present. Interatrial Septum * No evidence of PFO by color Doppler. IVC * Normal IVC dimensions and inspiratory collapse. Consult Discharge Plan - Plan Referrals: Fausto Palacios MD [Primary Care Provider] - 02/10/18 5:00 pm
[2018-02-02] MEDS ORDERED: Ondansetron 4 MG/2 ML VIAL ONE ×2 (20:01→21:13)
[2018-02-02] MEDS ORDERED: *HR* Morphine 2 MG/ML SYRINGE ONE ×2 (20:34→20:40)
--- NOTE | 2018-02-02 21:10 | Invasive Diagnostic Lab Proc ---
Name: Jorge Montilla Date of Study: 02/02/2018 Date: 1960 Ht: 70.9in Medical Record#: [id number] Age: 57 Wt: 205.03lb Gender: Male BSA: 2.13 Order #: [id number] BMI: 28.7 Physicians Procedure Physician: Rosalba Mathew MD, [facility] Referring MD: Referring MD: Staff Name Position Time In Cynthia Davis RN E M Assembler 06:02 PM Nayeli Joyce RN Monitor 06:02 PM Sites, Angelica RT (R) Scrub 06:02 PM Indications Indication Non-Stemi Procedures Performed Procedure L HRT ARTERY/VENTRICLE ANGIO Pre-Procedure Checklist Informed consent is complete signed and on chart. H&P is on chart. ID band is on and ID verified with patient. Patient NPO for procedure The procedure was described for the patient and questions were answered. Blood Pressure: 128/83 ECG is on chart. Plan of Care Patient will tolerate the procedure without complications. Adequate level of comfort will be maintained. Hemodynamics will remain stable Patient will recover from procedure without complications. Respiratory function will be maintained. Cardiac rhythm will remain stable. Patient temperature will be maintained. Patient and/or family have verbalized understanding of the procedure. Patient Education Chief Complaint/Reason for Test: Cardiac Cath Developmental Category: Adult (18-64 years) Developmentally Appropriate for Age: Yes Learning Barriers: None Education Needs: Procedure Education Method: Verbal Information Taught: Cardiac Cath Educational Evaluation: Able to repeat information Intravenous Access Time IV Size Location DC'd Fluid/Drip Rate Units RN 06:00 PM 20g 1 1/" Patent On Arrival Rt Antecubital 0.9NaCl 25 ml/hr Nayeli Joyce RN Allergies NKA BEES No Known Allergies Vital Signs Time BP (mmHg) HR (bpm) O2 Sat. RR (bpm) LOC 05:43 PM 128 / 83 72 96 % 16 5 = Fully awake and oriented or at pre-proc level 06:03 PM / % 5 = Fully awake and oriented or at pre-proc level 06:03 PM / % 4 = Oriented but drowsy 06:18 PM / % 4 = Oriented but drowsy 06:33 PM / % 4 = Oriented but drowsy 06:10 PM 140 / 92 63 99 % 12 06:14 PM 123 / 85 68 99 % 11 06:19 PM 132 / 89 67 100 % 14 06:24 PM 137 / 87 71 100 % 19 06:30 PM 164 / 99 68 100 % 17 06:34 PM 164 / 95 69 100 % 14 06:39 PM 152 / 90 68 99 % 18 06:44 PM 140 / 89 63 % 13 07:00 PM 132 / 86 64 98 % 13 5 = Fully awake and oriented or at pre-proc level 07:15 PM 129 / 91 60 98 % 11 5 = Fully awake and oriented or at pre-proc level 07:30 PM 137 / 88 60 99 % 11 5 = Fully awake and oriented or at pre-proc level 07:45 PM 151 / 102 62 % 13 5 = Fully awake and oriented or at pre-proc level 08:00 PM 162 / 108 70 100 % 12 5 = Fully awake and oriented or at pre-proc level 08:15 PM 165 / 114 72 98 % 12 5 = Fully awake and oriented or at pre-proc level 08:30 PM 161 / 81 75 100 % 13 5 = Fully awake and oriented or at pre-proc level 08:45 PM 145 / 81 76 100 % 14 5 = Fully awake and oriented or at pre-proc level 08:56 PM 146 / 84 79 100 % 15 5 = Fully awake and oriented or at pre-proc level Procedural Medications Time Medication Dose Units Method Given By 06:08 PM Oxygen 2 L/min nasal cannula Rashmi Silver RT (R) 06:08 PM Versed 2 mg Intravenous Cynthia Davis RN 06:08 PM Fentanyl 50 mcg Intravenous Cynthia Davis RN 06:16 PM Benadryl 25 mg Intravenous Cynthia Davis RN 06:16 PM Lidocaine 2% 18 ml Subcutaneous Rosalba Mathew MD, FACC 06:26 PM Angiomax 0.75mg/kg bolus: 14 ml Intravenous Cynthia Davis RN 06:26 PM Angiomax 1.75mg/kg/hr: 33 ml Intravenous Cynthia Davis RN 06:36 PM Nitroglycerin 200 mcg Intracoronary Rosalba Mathew MD, FACC 06:37 PM Brilinta 180 mg Orally Cynthia Davis RN 06:38 PM Fentanyl 25 mcg Intravenous Cynthia Davis RN 08:00 PM Tylenol 500 mg Orally Nayeli Joyce RN 08:06 PM Zofran 4 mg Intravenous Nayeli Joyce RN 08:32 PM Hydralazine 20 mg Intravenous Nayeli Joyce RN 08:46 PM Morphine 2 mg Intravenous Nayeli Joyce RN ASA Classification: CLASS II- Mild systemic disease (i.e. well-controlled diabetes, hypertension, asthma, cigarette smoking) Thiago Score Preprocedure Postprocedure Activity 2- Moves 4 extremities sustained head lift Activity 2- Moves 4 extremities sustained head lift Circulation 2- SBP +/= 20 points of pre-anesthetic level Circulation 2- SBP +/= 20 points of pre-anesthetic level Consciousness 2- Awake and alert oriented x 3 Consciousness 2- Awake and alert oriented x 3 O2 Saturation 2- Able to maintain O2 satruation of 92% on room air O2 Saturation 2- Able to maintain O2 satruation of 92% on room air Respiratory 2- Able to deep breathe and cough well Respiratory 2- Able to deep breathe and cough well Total Score 10 Total Score 10 Contrast Agent: Isovue Diagnostic Contrast: 129 ml Total Contrast: 129 ml Fluoro Dose: 431 mGy Procedure Log Time Note Enter By 05:45 PM CathStat 06:02 PM Pt arrived to physical laboratory assistant 2 at 18:02 :02 PM Cynthia Davis RN Position: E M Assembler Time in: 18:02 06:02 PM Nayeli Joyce RN Position: Monitor Time in: ::[address] RT (R) Position: Scrub Time in: 18:02 06:02 PM Patient charges- Angio tray pack, Navilyst 3mm J, Pulse Oximetry and ACIST tubing and transducer :02 PM IV Supplies used: J loop Angio Cath. 06:03 PM Case Delayed No :03 PM Physician arrived 18:03 :03 PM ASA Class CLASS II- Mild systemic disease (i.e. well-controlled diabetes, hypertension, asthma, cigarette smoking) :03 PM Meet and greet completed :03 PM Sign in performed according to hospital policy. 06:03 PM Procedure start 18:03 06:03 PM Time: 18:03 Patient comfortable and pain free: Yes :03 PM Time: 18:03LOC: 5 = Fully awake and oriented or at pre-proc level [email or web address] 06:03 PM Clinical Presentation: Non-STEMI 06:07 PM Vitals capture started with the following parameters, Patient=Adult, Interval=5 min, Initial Qzleokwh=603 mmHg, Deflation Rate=3 mmHg, Cuff placed on Right Arm 06:07 PM Hair removed from procedure site in holding area using clippers. Bilateral groin prepped with Chloraprep by Angelica Street (R), then patient was draped. Skin intact. 06:07 PM Vitals capture stopped. 06:08 PM Vitals capture started with the following parameters, Patient=Adult, Interval=5 min, Initial Csruoofr=883 mmHg, Deflation Rate=3 mmHg, Cuff placed on Right Arm 06:08 PM Time: 18:08 Oxygen on at 2 L/min per nasal cannula by Rashmi Silver RT (R) [facility] 06:08 PM Time: 18:08 Versed 2 mg Intravenous [facility] 06:09 PM Time: 18:08 Fentanyl 50 mcg Intravenous Given by Cynthia Davis RN [facility] 06:10 PM HR=63 bpm, HPUL=227/92 mmhg, SpO2=99.0 %, Resp=12 B/min, Comment=NSR 06:14 PM HR=68 bpm, HAPJ=998/85 mmhg, SpO2=99.0 %, Resp=11 B/min, Comment=NSR 06:15 PM Time out performed according to hospital policy [facility] 06:16 PM Time: 18:16 Benadryl 25 mg Intravenous Given by Cynthia Davis RN [facility] 06:16 PM Time: 18:16 18 ml Lidocaine 2% to right groin Subcutaneous Given by Rosalba Mathew MD, [facility] 06:17 PM Access obtained by percutaneous puncture. 5Fr 10cm Terumo [place] sheath placed in right Femoral artery. [id number] scoates 06:17 PM Pressure channel 1 zeroed. 06:17 PM 5Fr FL 4 catheter inserted over the wire [facility] scoates 06:18 PM Time: 18:03LOC: 4 = Oriented but drowsy scoates 06:18 PM Time: 18:03 Patient comfortable and pain free: Yes scoates 06:19 PM LCA angiography performed in multiple views. scoates 06:19 PM Recorded Pressure: Ao, HR=69, Condition=Condition 1 (Aorta) Ao 121/86/102 06:19 PM HR=67 bpm, OGJO=002/89 mmhg, ZzV5=108.0 %, Resp=14 B/min, Comment=NSR 06:19 PM Recorded Pressure: Ao, HR=67, Condition=Condition 1 (Aorta) Ao 118/81/98 06:20 PM Catheter removed scoates 06:20 PM 5Fr FR 4 catheter inserted over the wire DNC scoates 06:21 PM Recorded Pressure: Ao, HR=68, Condition=Condition 1 (Aorta) Ao 121/81/100 06:21 PM RCA angiography performed in multiple views. scoates 06:23 PM Catheter removed scoates 06:23 PM 5Fr Pigtail catheter inserted over the wire DNC scoates 06:23 PM Catheter selectively placed in left ventricle scoates 06:23 PM Bolus angiogram of left Ventricle complete: 8 ml/sec for a total of 24 mls scoates 06:23 PM Pressure channel 1 zeroed. 06:23 PM Recorded Pressure: LV, HR=68, Condition=Condition 1 (Left Ventricle) LV 123/11/11 06:24 PM Catheter removed scoates 06:24 PM Recorded Pressure: LV, Ao, HR=70, Condition=Condition 1 (Left Ventricle) LV 121/24/24, (Aorta) Ao 144/39/105 06:24 PM HR=71 bpm, XEIO=546/87 mmhg, CyW2=620.0 %, Resp=19 B/min, Comment=NSR 06:25 PM PCI Status Urgent scoates 06:25 PM PCI Indication: PCI for high risk Non-STEMI or unstable angina scoates 06:25 PM Inflation device was opened. scoates 06:25 PM Sheath exchanged for a 6 Fr 11 cm Cordis Anais sheath [id number] scoates 06:26 PM Lesion found in Ramus. Pre Stenosis: 90 Pre CARMENCITA Flow: 3: Complete and Brisk Flow/Perfusion scoates 06:26 PM Time: 18:26 Angiomax 0.75mg/kg bolus: 14 ml Intravenous Given by Cynthia Davis RN Castaneda pump scoates 06:26 PM Time: 18:26 Angiomax 1.75mg/kg/hr: 33 ml Intravenous Given by Cynthia Davis RN Castaneda pump scoates 06:27 PM 6Fr XB LAD 3.5 [place] Bright-Tip guide catheter was used to cannulate the PCI vessel successfully. reused? No scoates 06:27 PM .014 Prowater 180cm guide wire across target lesion- successful. reused? No scoates 06:28 PM Recorded Pressure: Ao, HR=72, Condition=Condition 1 (Aorta) Ao 161/87/119 06:30 PM HR=68 bpm, NDUO=312/99 mmhg, WgA5=357.0 %, Resp=17 B/min, Comment=NSR 06:30 PM 2.0 mm x 15 mm Emerge Monorail balloon across target lesion- successful. reused? No scoates 06:31 PM Recorded Pressure: Ao, HR=73, Condition=Condition 1 (Aorta) Ao 141/93/116 06:32 PM Balloon inflated @ 10 linnea for 20 seconds scoates 06:32 PM Balloon catheter removed intact. scoates 06:33 PM Time: 18:18 Patient comfortable and pain free: Yes scoates 06:33 PM Time: 18:18LOC: 4 = Oriented but drowsy scoates 06:34 PM 2.25mm x 20mm Synergy drug-eluting stent across target lesion- successful Lot #[id number] scoates 06:34 PM Recorded Pressure: Ao, HR=68, Condition=Condition 1 (Aorta) Ao 158/90/119 06:34 PM HR=69 bpm, LGTF=898/95 mmhg, OuV2=733.0 %, Resp=14 B/min, Comment=NSR 06:35 PM Stent deployed @ 12 linnea for 30 seconds scoates 06:37 PM Time: 18:36 Nitroglycerin 200 mcg Intracoronary Given by Rosalba Mathew MD, [facility] scoates 06:37 PM Time: 18:37 Brilinta 180 mg Orally Given by Cynthia Davis RN scoates 06:38 PM Stent delivery system removed intact. scoates 06:38 PM Guide wire removed intact. scoates 06:38 PM Guide catheter removed intact. scoates 06:38 PM Bolus angiogram of right Femoral complete: 4 ml/sec for a total of 7 mls scoates 06:38 PM Time: 18:38 Fentanyl 25 mcg Intravenous Given by Cynthia Davis RN scoates 06:39 PM HR=68 bpm, SLEN=674/90 mmhg, SpO2=99.0 %, Resp=18 B/min 06:42 PM Procedure completed at 18:42 scoates 06:44 PM Sign out completed: Radiation Dose 431 mGy Fluoro Time: 4.0 Isovue 370 - 200ml contrast 129 ml given by Rosalba Mathew MD, FACC. Complications: NoneCardiac Rehab Consult needed: YesConfirmed administered medications: Yes scoates 06:44 PM HR=63 bpm, IJRL=960/89 mmhg, Resp=13 B/min, Comment=NSR 06:45 PM Isovue 370 - 200ml,1 Bottle(s) used. scoates 06:45 PM Sheath left in place to be pulled on floor/holding area scoates 06:46 PM Estimated Blood Loss: less than 20cc scoates 06:46 PM Post ECG NSR scoates 06:46 PM Post Blood Pressure 140/89 scoates 06:47 PM 18:47 Post Pulses Bilateral DP & PT 1+ scoates 06:48 PM Information taught Cardiac Cath and PCI scoates 06:48 PM Education needs Procedure, Plan of Care, and Responsibilities of Patient in Care scoates 06:48 PM Learning barriers :None scoates 06:48 PM Education Methods Verbal scoates 06:48 PM Education evaluation Able to repeat information scoates 06:48 PM Site status No bleeding/hematoma - Rt Groin as reported by Sites, Angelica RT (R) at 18:48 scoates 06:48 PM Opsite applied scoates 06:48 PM Plavix, Effient or Brilinta given Yes scoates 06:48 PM Family placed in consult room. scoates 06:48 PM Complications: None scoates 06:48 PM Time: 18:33LOC: 4 = Oriented but drowsy scoates 06:58 PM Delay to floor Bed availability, bed dirty scoates 06:58 PM Patient out of room: 18:58 scoates 06:58 PM Fluoro Time: 4 scoates 06:58 PM Isovue 370 - 200ml contrast 129 ml given by . scoates 06:58 PM Radiation Dose 431 mGy scoates 06:59 PM Lesion found in Proximal RCA. Pre Stenosis: 30 Pre CARMENCITA Flow: scoates 06:59 PM Lesion found in Mid RCA. Pre Stenosis: 30 Pre CARMENCITA Flow: scoates 06:59 PM Lesion found in LMCA. Pre Stenosis: 15 Pre CARMENCITA Flow: scoates 07:00 PM Lesion found in Proximal Circumflex. Pre Stenosis: 20 Pre CARMENCITA Flow: scoates 07:00 PM Lesion found in Mid Circumflex. Pre Stenosis: 30 Pre CARMENCITA Flow: scoates 07:00 PM Coronary Dominance: Co-dominant scoates 07:00 PM Left Main Coronary Artery with 15% stenosis scoates 07:00 PM Circumflex, Obtuse Marginal, Left Posterior Descending, and Left Posterolateral Coronary Arteries with 30 % stenosis. If graft is supplying this area, 0 % stenosis scoates 07:00 PM Right Coronary, Right Posterior Descending Arteries with Right Posterolateral and Acute Marginal branches with 30 % stenosis. If graft is supplying this area, 0 % stenosis scoates 07:00 PM Ramus with 90% stenosis. If graft is supplying this area, 0 % stenosis scoates 07:05 PM Patient to holding room 1 while waiting for 2n room to be cleaned, family at bedside scoates 07:05 PM Erika Perez, LEGAL CASHIER came to be with patient while room is getting cleaned d/t STEMI scoates 08:00 PM notified that patient is having a severe headache and elevated bp, and nausea. She ordered 500mg tylenol extra strength, and 4mg zofran scoates 08:00 PM Time: 20:00 Tylenol 500 mg Orally Given by Nayeli Joyce RN scoates 08:06 PM Time: 20:06 Zofran 4 mg Intravenous Given by Nayeli Joyce RN scoates 08:20 PM notified that patient is still having a headache, rating it 10/10 and his bp is still elevated. Dr. Mathew ordered 20mg Iv hydralazine and 2mg IV morphine scoates 08:23 PM report called to Stevie LEAL on 2N scoates 08:32 PM Time: 20:32 Hydralazine 20 mg Intravenous Given by Nayeli Joyce RN scoates 08:46 PM Time: 20:46 Morphine 2 mg Intravenous Given by Nayeli Joyce RN scoates 08:57 PM pt voided 400mls. scoates 08:57 PM pt states his headache is now a 5/10 scoates 09:02 PM patient being taken to floor now scoates Complications Complication None None Hemodynamics Pressures Site Systolic/A Wave Diastolic/V Wave Mean AO 121 86 102 AO 118 81 98 AO 121 81 100 LV 123 11 11 LV 121 24 24 AO 144 39 105 AO 161 87 119 AO 141 93 116 AO 158 90 119 Post Procedure Information Blood Pressure: 140/89 mmHg Rhythm: NSR Post procedural instructions were given Site Checks Time Location Status Staff Sheath In? Note 06:48 PM Rt Groin No bleeding/hematoma Sites, Angelica RT (R) Yes 07:00 PM Rt Groin No bleeding/ No Hematoma [place], Nayeli LEAL Yes 07:15 PM Rt Groin No bleeding/ No Hematoma [place], Nayeli LEAL Yes 07:30 PM Rt Groin No bleeding/ No Hematoma [place], Nayeli LEAL Yes 07:45 PM Rt Groin No bleeding/ No Hematoma [place], Nayeli LEAL Yes 08:00 PM Rt Groin No bleeding/ No Hematoma [place], Nayeli LEAL Yes 08:15 PM Rt Groin No bleeding/ No Hematoma [place], Nayeli LEAL Yes 08:30 PM Rt Groin No bleeding/ No Hematoma [place], Nayeli LEAL Yes 08:45 PM Rt Groin No bleeding/ No Hematoma [place], Nayeli LEAL Yes 08:58 PM Rt Groin No bleeding/ No Hematoma [place], Nayeli LEAL Yes Pulses Time Site Pre-Procedure Post-Procedure Note 02/02/2018 6:00:00 PM Bilateral DP & PT 1+ 6:47:00 PM Bilateral DP & PT 1+ 02/02/2018 7:00:00 PM Bilateral DP & PT 2+ 02/02/2018 7:15:00 PM Bilateral DP & PT 2+ 02/02/2018 7:30:00 PM Bilateral DP & PT 2+ 02/02/2018 7:45:00 PM Bilateral DP & PT 2+ 02/02/2018 8:00:00 PM Bilateral DP & PT 2+ 02/02/2018 8:15:00 PM Bilateral DP & PT 2+ 02/02/2018 8:30:00 PM Bilateral DP & PT 2+ 02/02/2018 8:45:00 PM Bilateral DP & PT 2+ 02/02/2018 8:56:00 PM Bilateral DP & PT 2+ Updated by Nayeli Huang RN on 02/02/2018 9:03:11 PM electronically signed on 02/02/2018 9:03:56 PM with status of Final
[2018-02-02] MEDS ORDERED: *HR* Atropine Sulfate 1 MG/10 ML SYRINGE ONE (21:41)
--- NOTE | 2018-02-02 21:41 | Invasive Diagnostic Lab Proc ---
Name: Jorge Montilla Date of Study: 02/02/2018 Date: 1960 Ht: 70.9in Medical Record#: [id number] Age: 57 Wt: 205.03lb Gender: Male BSA: 2.13 Order #: [id number] BMI: 28.7 Physicians Procedure Physician: Rosalba Mathew MD, [facility] Referring MD: Referring MD: Staff Name Position [facility] Surface Hydrologist 06:02 PM Nayeli Joyce RN Monitor 06:02 PM Sites, Angelica RT (R) Scrub 06:02 PM Indications Indication Non-Stemi Procedures Performed Procedure L HRT ARTERY/VENTRICLE ANGIO PRQ CARD SUMIT STENT W/ANGIO 1 VSL Pre-Procedure Checklist Informed consent is complete signed and on chart. H&P is on chart. ID band is on and ID verified with patient. Patient NPO for procedure The procedure was described for the patient and questions were answered. Blood Pressure: 128/83 ECG is on chart. Plan of Care Patient will tolerate the procedure without complications. Adequate level of comfort will be maintained. Hemodynamics will remain stable Patient will recover from procedure without complications. Respiratory function will be maintained. Cardiac rhythm will remain stable. Patient temperature will be maintained. Patient and/or family have verbalized understanding of the procedure. Patient Education Chief Complaint/Reason for Test: Cardiac Cath Developmental Category: Adult (18-64 years) Developmentally Appropriate for Age: Yes Learning Barriers: None Education Needs: Procedure Education Method: Verbal Information Taught: Cardiac Cath Educational Evaluation: Able to repeat information Intravenous Access Time IV Size Location DC'd Fluid/Drip Rate Units RN 06:00 PM 20g 1 11/12" Patent On Arrival Rt Antecubital 0.9NaCl 25 ml/hr Nayeli Joyce RN Allergies NKA BEES No Known Allergies Vital Signs Time BP (mmHg) HR (bpm) O2 Sat. RR (bpm) LOC 05:43 PM 128 / 83 72 96 % 16 5 = Fully awake and oriented or at pre-proc level 06:03 PM / % 5 = Fully awake and oriented or at pre-proc level 06:03 PM / % 4 = Oriented but drowsy 06:18 PM / % 4 = Oriented but drowsy 06:33 PM / % 4 = Oriented but drowsy 06:10 PM 140 / 92 63 99 % 12 06:14 PM 123 / 85 68 99 % 11 06:19 PM 132 / 89 67 100 % 14 06:24 PM 137 / 87 71 100 % 19 06:30 PM 164 / 99 68 100 % 17 06:34 PM 164 / 95 69 100 % 14 06:39 PM 152 / 90 68 99 % 18 06:44 PM 140 / 89 63 % 13 07:00 PM 132 / 86 64 98 % 13 5 = Fully awake and oriented or at pre-proc level 07:15 PM 129 / 91 60 98 % 11 5 = Fully awake and oriented or at pre-proc level 07:30 PM 137 / 88 60 99 % 11 5 = Fully awake and oriented or at pre-proc level 07:45 PM 151 / 102 62 % 13 5 = Fully awake and oriented or at pre-proc level 08:00 PM 162 / 108 70 100 % 12 5 = Fully awake and oriented or at pre-proc level 08:15 PM 165 / 114 72 98 % 12 5 = Fully awake and oriented or at pre-proc level 08:30 PM 161 / 81 75 100 % 13 5 = Fully awake and oriented or at pre-proc level 08:45 PM 145 / 81 76 100 % 14 5 = Fully awake and oriented or at pre-proc level 08:56 PM 146 / 84 79 100 % 15 5 = Fully awake and oriented or at pre-proc level Procedural Medications Time Medication Dose Units Method Given By 06:08 PM Oxygen 2 L/min nasal cannula Rashmi Silver RT (R) 06:08 PM Versed 2 mg Intravenous Cynthia Davis RN 06:08 PM Fentanyl 50 mcg Intravenous Cynthia Davis RN 06:16 PM Benadryl 25 mg Intravenous Cynthia Davis RN 06:16 PM Lidocaine 2% 18 ml Subcutaneous Rosalba Mathew MD, FACC 06:26 PM Angiomax 0.75mg/kg bolus: 14 ml Intravenous Cynthia Davis RN 06:26 PM Angiomax 1.75mg/kg/hr: 33 ml Intravenous Cynthia Davis RN 06:36 PM Nitroglycerin 200 mcg Intracoronary Rosalba Mathew MD, FACC 06:37 PM Brilinta 180 mg Orally Cynthia Davis RN 06:38 PM Fentanyl 25 mcg Intravenous Cynthia Davis RN 08:00 PM Tylenol 500 mg Orally Nayeli Joyce RN 08:06 PM Zofran 4 mg Intravenous Nayeli Joyce RN 08:32 PM Hydralazine 20 mg Intravenous Nayeli Joyce RN 08:46 PM Morphine 2 mg Intravenous Nayeli Joyce RN ASA Classification: CLASS II- Mild systemic disease (i.e. well-controlled diabetes, hypertension, asthma, cigarette smoking) Thiago Score Preprocedure Postprocedure Activity 2- Moves 4 extremities sustained head lift Activity 2- Moves 4 extremities sustained head lift Circulation 2- SBP +/= 20 points of pre-anesthetic level Circulation 2- SBP +/= 20 points of pre-anesthetic level Consciousness 2- Awake and alert oriented x 3 Consciousness 2- Awake and alert oriented x 3 O2 Saturation 2- Able to maintain O2 satruation of 92% on room air O2 Saturation 2- Able to maintain O2 satruation of 92% on room air Respiratory 2- Able to deep breathe and cough well Respiratory 2- Able to deep breathe and cough well Total Score 10 Total Score 10 Contrast Agent: Isovue Diagnostic Contrast: 129 ml Total Contrast: 129 ml Fluoro Dose: 431 mGy Procedure Log Time Note Enter By 05:45 PM CathStat 06:02 PM Pt arrived to quality assurance/r&d lab technician 2 at 18:02 06:02 PM Cynthia Davis RN Position: Surface Hydrologist Time in: 18:02 06:02 PM Nayeli Joyce RN Position: Monitor Time in: 18:02 06:[address] RT (R) Position: Scrub Time in: 18:02 06:02 PM Patient charges- Angio tray pack, Navilyst 3mm J, Pulse Oximetry and ACIST tubing and transducer 06:02 PM IV Supplies used: J loop Angio Cath. 06:03 PM Case Delayed No 06:03 PM Physician arrived 18:03 06:03 PM ASA Class CLASS II- Mild systemic disease (i.e. well-controlled diabetes, hypertension, asthma, cigarette smoking) 06:03 PM Meet and greet completed 06:03 PM Sign in performed according to hospital policy. 06:03 PM Procedure start 18:03 06:03 PM Time: 18:03 Patient comfortable and pain free: Yes 06:03 PM Time: 18:03LOC: 5 = Fully awake and oriented or [facility] 06[facility] PM Clinical Presentation: Non-STEMI :07 PM Vitals capture started with the following parameters, Patient=Adult, Interval=5 min, Initial Ckjomoex=601 mmHg, Deflation Rate=3 mmHg, Cuff placed on Right Arm 06:07 PM Hair removed from procedure site in holding area using clippers. Bilateral groin prepped with Chloraprep by Angelica Street RT (R), then patient was draped. Skin intact. :07 PM Vitals capture stopped. 06:08 PM Vitals capture started with the following parameters, Patient=Adult, Interval=5 min, Initial Xlgzfvbg=756 mmHg, Deflation Rate=3 mmHg, Cuff placed on Right Arm 06:08 PM Time: 18:08 Oxygen on at 2 L/min per nasal cannula by Rashmi Silver RT (R) [facility] 06:08 PM Time: 18:08 Versed 2 mg Intravenous Given by Cynthia Davis RN [facility] 06:09 PM Time: 18:08 Fentanyl 50 mcg Intravenous Given by Cynthia Davis RN [facility] 06:10 PM HR=63 bpm, JEMR=650/92 mmhg, SpO2=99.0 %, Resp=12 B/min, Comment=NSR 06:14 PM HR=68 bpm, ZPKI=219/85 mmhg, SpO2=99.0 %, Resp=11 B/min, Comment=NSR 06:15 PM Time out performed according to hospital policy [facility] 06:16 PM Time: 18:16 Benadryl 25 mg Intravenous Given by Cynthia Davis RN [facility] 06:16 PM Time: 18:16 18 ml Lidocaine 2% to right groin Subcutaneous Given by Rosalba Mathew MD, [facility] 06:17 PM Access obtained by percutaneous puncture. 5Fr 10cm Terumo Haywood sheath placed in right Femoral artery. [id number] scoates 06:17 PM Pressure channel 1 zeroed. 06:17 PM 5Fr FL 4 catheter inserted over the wire DNC scoates 06:18 PM Time: 18:03LOC: 4 = Oriented but drowsy scoates 06:18 PM Time: 18:03 Patient comfortable and pain free: Yes scoates 06:19 PM LCA angiography performed in multiple views. scoates 06:19 PM Recorded Pressure: Ao, HR=69, Condition=Condition 1 (Aorta) Ao 121/86/102 06:19 PM HR=67 bpm, SAJD=209/89 mmhg, CuR8=702.0 %, Resp=14 B/min, Comment=NSR 06:19 PM Recorded Pressure: Ao, HR=67, Condition=Condition 1 (Aorta) Ao 118/81/98 06:20 PM Catheter removed scoates 06:20 PM 5Fr FR 4 catheter inserted over the wire DNC scoates 06:21 PM Recorded Pressure: Ao, HR=68, Condition=Condition 1 (Aorta) Ao 121/81/100 06:21 PM RCA angiography performed in multiple views. scoates 06:23 PM Catheter removed scoates 06:23 PM 5Fr Pigtail catheter inserted over the wire DN scoates 06:23 PM Catheter selectively placed in left ventricle scoates 06:23 PM Bolus angiogram of left Ventricle complete: 8 ml/sec for a total of 24 mls scoates 06:23 PM Pressure channel 1 zeroed. 06:23 PM Recorded Pressure: LV, HR=68, Condition=Condition 1 (Left Ventricle) LV 123/11/11 06:24 PM Catheter removed scoates 06:24 PM Recorded Pressure: LV, Ao, HR=70, Condition=Condition 1 (Left Ventricle) LV 121/24/24, (Aorta) Ao 144/39/105 06:24 PM HR=71 bpm, TKUB=577/87 mmhg, HbU0=342.0 %, Resp=19 B/min, Comment=NSR 06:25 PM PCI Status Urgent scoates 06:25 PM PCI Indication: PCI for high risk Non-STEMI or unstable angina scoates 06:25 PM Inflation device was opened. scoates 06:25 PM Sheath exchanged for a 6 Fr 11 cm Cordis Anais sheath [id number] scoates 06:26 PM Lesion found in Ramus. Pre Stenosis: 90 Pre CARMENCITA Flow: 3: Complete and Brisk Flow/Perfusion scoates 06:26 PM Time: 18:26 Angiomax 0.75mg/kg bolus: 14 ml Intravenous Given by Cynthia Davis RN Castaneda pump scoates 06:26 PM Time: 18:26 Angiomax 1.75mg/kg/hr: 33 ml Intravenous Given by Cynthia Davis RN Castaneda pump scoates 06:27 PM 6Fr XB LAD 3.5 Austin Bright-Tip guide catheter was used to cannulate the PCI vessel successfully. reused? No scoates 06:27 PM .014 Prowater 180cm guide wire across target lesion- successful. reused? No scoates 06:28 PM Recorded Pressure: Ao, HR=72, Condition=Condition 1 (Aorta) Ao 161/87/119 06:30 PM HR=68 bpm, HWXN=827/99 mmhg, HxW5=471.0 %, Resp=17 B/min, Comment=NSR 06:30 PM 2.0 mm x 15 mm Emerge Monorail balloon across target lesion- successful. reused? No scoates 06:31 PM Recorded Pressure: Ao, HR=73, Condition=Condition 1 (Aorta) Ao 141/93/116 06:32 PM Balloon inflated @ 10 linnea for 20 seconds scoates 06:32 PM Balloon catheter removed intact. scoates 06:33 PM Time: 18:18 Patient comfortable and pain free: Yes scoates 06:33 PM Time: 18:18LOC: 4 = Oriented but drowsy scoates 06:34 PM 2.25mm x 20mm Synergy drug-eluting stent across target lesion- successful Lot #[id number] scoates 06:34 PM Recorded Pressure: Ao, HR=68, Condition=Condition 1 (Aorta) Ao 158/90/119 06:34 PM HR=69 bpm, RZRD=235/95 mmhg, EfF3=261.0 %, Resp=14 B/min, Comment=NSR 06:35 PM Stent deployed @ 12 linnea for 30 seconds scoates 06:37 PM Time: 18:36 Nitroglycerin 200 mcg Intracoronary Given by Rosalba Mathew MD, [facility] scoates 06:37 PM Time: 18:37 Brilinta 180 mg Orally Given by Cynthia Davis RN scoates 06:38 PM Stent delivery system removed intact. scoates 06:38 PM Guide wire removed intact. scoates 06:38 PM Guide catheter removed intact. scoates 06:38 PM Bolus angiogram of right Femoral complete: 4 ml/sec for a total of 7 mls scoates 06:38 PM Time: 18:38 Fentanyl 25 mcg Intravenous Given by Cynthia Davis RN scoates 06:39 PM HR=68 bpm, UDTV=184/90 mmhg, SpO2=99.0 %, Resp=18 B/min 06:42 PM Procedure completed at 18:42 scoates 06:44 PM Sign out completed: Radiation Dose 431 mGy Fluoro Time: 4.0 Isovue 370 - 200ml contrast 129 ml given by Rosalba Mathew MD, FACC. Complications: NoneCardiac Rehab Consult needed: YesConfirmed administered medications: Yes scoates 06:44 PM HR=63 bpm, WQOL=243/89 mmhg, Resp=13 B/min, Comment=NSR 06:45 PM Isovue 370 - 200ml,1 Bottle(s) used. scoates 06:45 PM Sheath left in place to be pulled on floor/holding area scoates 06:46 PM Estimated Blood Loss: less than 20cc scoates 06:46 PM Post ECG NSR scoates 06:46 PM Post Blood Pressure 140/89 scoates 06:47 PM 18:47 Post Pulses Bilateral DP & PT 1+ scoates 06:48 PM Information taught Cardiac Cath and PCI scoates 06:48 PM Education needs Procedure, Plan of Care, and Responsibilities of Patient in Care scoates 06:48 PM Learning barriers :None scoates 06:48 PM Education Methods Verbal scoates 06:48 PM Education evaluation Able to repeat information scoates 06:48 PM Site status No bleeding/hematoma - Rt Groin as reported by Sites, Angelica RT (R) at 18:48 scoates 06:48 PM Opsite applied scoates 06:48 PM Plavix, Effient or Brilinta given Yes scoates 06:48 PM Family placed in consult room. scoates 06:48 PM Complications: None scoates 06:48 PM Time: 18:33LOC: 4 = Oriented but drowsy scoates 06:58 PM Delay to floor Bed availability, bed dirty scoates 06:58 PM Patient out of room: 18:58 scoates 06:58 PM Fluoro Time: 4 scoates 06:58 PM Isovue 370 - 200ml contrast 129 ml given by . scoates 06:58 PM Radiation Dose 431 mGy scoates 06:59 PM Lesion found in Proximal RCA. Pre Stenosis: 30 Pre CARMENCITA Flow: scoates 06:59 PM Lesion found in Mid RCA. Pre Stenosis: 30 Pre CARMENCITA Flow: scoates 06:59 PM Lesion found in LMCA. Pre Stenosis: 15 Pre CARMENCITA Flow: scoates 07:00 PM Lesion found in Proximal Circumflex. Pre Stenosis: 20 Pre CARMENCITA Flow: scoates 07:00 PM Lesion found in Mid Circumflex. Pre Stenosis: 30 Pre CARMENCITA Flow: scoates 07:00 PM Coronary Dominance: Co-dominant scoates 07:00 PM Left Main Coronary Artery with 15% stenosis scoates 07:00 PM Circumflex, Obtuse Marginal, Left Posterior Descending, and Left Posterolateral Coronary Arteries with 30 % stenosis. If graft is supplying this area, 0 % stenosis scoates 07:00 PM Right Coronary, Right Posterior Descending Arteries with Right Posterolateral and Acute Marginal branches with 30 % stenosis. If graft is supplying this area, 0 % stenosis scoates 07:00 PM Ramus with 90% stenosis. If graft is supplying this area, 0 % stenosis scoates 07:05 PM Patient to holding room 1 while waiting for 2n room to be cleaned, family at bedside scoates 07:05 PM Erika Perez, REGISTERED OCCUPATIONAL THERAPIST came to be with patient while room is getting cleaned d/t STEMI scoates 08:00 PM notified that patient is having a severe headache and elevated bp, and nausea. She ordered 500mg tylenol extra strength, and 4mg zofran scoates 08:00 PM Time: 20:00 Tylenol 500 mg Orally Given by Nayeli Joyce RN scoates 08:06 PM Time: 20:06 Zofran 4 mg Intravenous Given by Nayeli Joyce RN scoates 08:20 PM notified that patient is still having a headache, rating it 10/10 and his bp is still elevated. Dr. Mathew ordered 20mg Iv hydralazine and 2mg IV morphine scoates 08:23 PM report called to Stevie LEAL on 2N scoates 08:32 PM Time: 20:32 Hydralazine 20 mg Intravenous Given by Nayeli Joyce RN scoates 08:46 PM Time: 20:46 Morphine 2 mg Intravenous Given by Nayeli Joyce RN scoates 08:57 PM pt voided 400mls. scoates 08:57 PM pt states his headache is now a 5/10 scoates 09:02 PM patient being taken to floor now scoates Complications Complication None None Hemodynamics Pressures Site Systolic/A Wave Diastolic/V Wave Mean AO 121 86 102 AO 118 81 98 AO 121 81 100 LV 123 11 11 LV 121 24 24 AO 144 39 105 AO 161 87 119 AO 141 93 116 AO 158 90 119 Post Procedure Information Blood Pressure: 140/89 mmHg Rhythm: NSR Post procedural instructions were given Site Checks Time Location Status Staff Sheath In? Note 06:48 PM Rt Groin No bleeding/hematoma Sites, Angelica RT (R) Yes 07:00 PM Rt Groin No bleeding/ No Hematoma [place], Nayeli LEAL Yes 07:15 PM Rt Groin No bleeding/ No Hematoma [place], Nayeli LEAL Yes 07:30 PM Rt Groin No bleeding/ No Hematoma [place], Nayeli RN Yes 07:45 PM Rt Groin No bleeding/ No Hematoma [place], Nayeli LEAL Yes 08:00 PM Rt Groin No bleeding/ No Hematoma [place], Nayeli LEAL Yes 08:15 PM Rt Groin No bleeding/ No Hematoma [place], Nayeli RN Yes 08:30 PM Rt Groin No bleeding/ No Hematoma [place], Nayeli LEAL Yes 08:45 PM Rt Groin No bleeding/ No Hematoma [place], Nayeli LEAL Yes 08:58 PM Rt Groin No bleeding/ No Hematoma [place], Nayeli LEAL Yes Pulses Time Site Pre-Procedure Post-Procedure Note 02/02/2018 6:00:00 PM Bilateral DP & PT 1+ 6:47:00 PM Bilateral DP & PT 1+ 02/02/2018 7:00:00 PM Bilateral DP & PT 2+ 02/02/2018 7:15:00 PM Bilateral DP & PT 2+ 02/02/2018 7:30:00 PM Bilateral DP & PT 2+ 02/02/2018 7:45:00 PM Bilateral DP & PT 2+ 02/02/2018 8:00:00 PM Bilateral DP & PT 2+ 02/02/2018 8:15:00 PM Bilateral DP & PT 2+ 02/02/2018 8:30:00 PM Bilateral DP & PT 2+ 02/02/2018 8:45:00 PM Bilateral DP & PT 2+ 02/02/2018 8:56:00 PM Bilateral DP & PT 2+ Updated by Cynthia Davis RN on 02/02/2018 9:35:02 PM electronically signed on 02/02/2018 9:35:28 PM with status of Final
[2018-02-02] MEDS: traMADol 50 MG TABLET PO PRN (22:57)
[2018-02-03 04:39] LABS: BUN/Creatinine Ratio 20 (6-26); Blood Urea Nitrogen 17 mg/dL (6-20); eGFR For African Americans > 60 (> 60); eGFR For Non-African Americans > 60 (> 60)
[2018-02-03 04:40] LABS: Hemoglobin 15.3 g/dL (12.9-16.9)
[2018-02-03 04:50] LABS: Troponin I 0.16 ng/mL (< 0.04)
[2018-02-03 07:13] VITALS: BP 122/77
[2018-02-03] MEDS: Multivit/Ca/Min/Fe/FA 1 TAB TABLET PO SCH (08:22)
[2018-02-03] MEDS: Folic Acid 1 MG TABLET PO SCH (08:22)
[2018-02-03] MEDS: Insulin LISPRO 300 UNITS/3 ML VIAL SQ SCH (08:23)
[2018-02-03] MEDS: Aspirin Enteric Coated 81 MG Tablet PO SCH (08:23)
[2018-02-03] MEDS: traMADol 50 MG TABLET PO PRN (08:24)
[2018-02-03] MEDS: Insulin DETEMIR 100 UNIT/ML X5UNITS SQ SCH (08:30)
--- NOTE | 2018-02-03 10:38 | Discharge Summary ---
<Wes Jaimes - Last Filed: 02/03/18 10:35> Orders not resulted at time of discharge: Pending orders 02/02/18 13:27 CL Cardiac Catheterization [CL] Routine 02/02/18 18:55 ECG 12 lead ECG [ECG] Stat Date of Encounter: 02/03/18 Time of Encounter: 10:36 - Discharge Diagnosis (1) NSTEMI (non-ST elevated myocardial infarction) Priority: Primary Status: Resolved (2) Chest pain Priority: Secondary Status: Resolved Qualifiers: Chest pain type: precordial pain Qualified Code(s): R07.2 - Precordial pain (3) CAD (coronary artery disease) Priority: Secondary Status: Chronic Qualifiers: Coronary Disease-Associated Artery/Lesion type: [place] artery [place] vs. 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 Montilla is a 57 year old male history of coronary disease with previous LHC in 2015 x2 SUMIT presented with chest pressure, substernal radiating to the left axilla and left upper arm with associated shortness of breath. Patient's pain improved with nitroglycerin. Patient was on aspirin and Plavix for 2 years after his previous left heart catheter in 2014. Plavix was discontinued 2 weeks ago. Chest x-ray negative for acute changes. EKG was sinus rhythm with Q waves in inferior leads and no ST-T wave changes. Patient's troponin initially were 0.03, 0.03 but then increased to 0.27. Cardiology was consulted and recommended left heart catheterization. Echocardiogram shows LVEF of 60% with normal right ventricular structure and function and no significant valvular dysfunction and no wall motion abnormalities. Patient had drug eluding stent placed in the ramus. Patient was restarted on his Plavix. Patient tolerated his left heart catheterization and this morning denies chest pain, shortness of breath. He is tolerating his diet. He is ambulating independently. Cardiology states patient is stable for discharge. Patient will follow-up with PCP and cardiology outpatient. Patient's hemoglobin A1c 7.6. Patient educated on having low fat, low cholesterol diet. Educated on improving hyperglycemia. Discharge discussed with: patient - Time Spent with Patient Total time spent providing and/or coordinating discharge services: Greater than 30 minutes - Discharge Medications Home Medications: Aspirin Enteric Coated [Aspirin EC] 81 mg PO DAILY 07/12/15 [History] Escitalopram [Lexapro] 10 mg PO DAILY 07/12/15 [History] Folic Acid 0.4 mg PO DAILY 07/12/15 [History] Insulin Glargine,Hum.rec.anlog [Lantus Solostar] 80 unit SQ DAILY 07/12/15 [ History] Multivit with Iron-Minerals [Compete] 1 each PO DAILY 07/12/15 [History] Pantoprazole Sodium 40 mg PO DAILY 07/12/15 [History] Atorvastatin [Lipitor] 80 mg PO HS #30 tablet 07/13/15 [Rx] Clopidogrel [Plavix] 75 mg PO DAILY #30 tablet 07/13/15 [Rx] Metoprolol [Lopressor] 25 mg PO BID #60 tablet 07/13/15 [Rx] Empagliflozin [Jardiance] 25 mg PO DAILY 02/01/18 [History] Liraglutide [Victoza 3-Vito] 1.8 mg IJ DAILY 02/01/18 [History] Lisinopril-HCTZ 10-12.5 [Prinzide 10-12.5] 1 tab PO DAILY 02/01/18 [History] Metformin HCl [Metformin HCl ER] 500 mg PO BID 02/01/18 [History] Tramadol HCl [Ultram] 50 mg PO Q6H PRN 02/01/18 [History] Allergies/Adverse Reactions: 3 Allergy/AdvReac Type Severity Reaction Status Date / Time No Known Allergies Allergy Verified 02/01/18 14:02 Date of admission: 02/01/18 16:37 Primary care physician: Fausto Palacios MD Consults: 02/02/18 09:49 Consult to Cardiology [CONS] Routine Comment: Consulting Provider: Cardiology Soledad Reason for Consult: chest pain, elevated trops this a.m. Time Notified: 09:49 Call Completed: Yes 02/02/18 13:12 Consult to Cardiac Rehabilitation-Phase1 [CONS] Routine Comment: Reason for Consult: NSTEMI Call Completed: No 02/02/18 18:55 Consult to Cardiac Rehabilitation-Phase1 [CONS] Routine Comment: Reason for Consult: post op PCI Call Completed: Yes Discharging clinician: Wes Jaimes Anticipated date of discharge: 02/03/18 - Constitutional Vitals: Temp Pulse Resp BP Pulse Ox 98.3 F 71 18 122/77 98 02/03/18 08:30 02/03/18 08:30 02/03/18 08:30 02/03/18 08:30 02/03/18 08:30 General appearance: Present: cooperative, mild distress, A&O X 3, answers questions appropriately - Other Additional findings: General: without distress HEENT: Head atraumatic, normocephalic, EOMI, PERRL, neck nontender to palpation , absent lymphadenopathy, Moist Mucous Membranes, Heart: Regular rate and rhythm with no murmur Lungs: Clear to auscultation bilaterally Abdomen: Soft nontender, nondistended positive bowel sounds Skin: warm and dry Extremities: Absent pedal edema, Neuro: Cranial nerves II through XII intact, UE and LE sensation equal bilaterally, UE and LEstrength 5/5, alert oriented 3, Vascular: Pedal and radial pulses 2 out of 4 - Patient Status Disposition: Home, Self-Care Condition: Fair Functional capacity at discharge: independent ambulation Overall status at discharge: patient is progressing back to baseline - Discharge Instructions Instructions: Myocardial Infarction (DC), Chest Pain (DC), Left Heart Catheterization (DC), Diabetes Mellitus Type 2 in Adults (DC), Chronic Hypertension (DC), Coronary Intravascular Stent Placement, Electromatic Typist (GEN) Follow Up With: Fausto Palacios MD [Primary Care Provider] - 02/10/18 5:00 pm - Diet and Activity Activity: increase activity as tolerated Diet: diabetic diet, low fat, low cholesterol, low salt diet <Danny Vo - Last Filed: 02/03/18 15:45> Orders not resulted at time of discharge: Pending orders 02/02/18 18:55 ECG 12 lead ECG [ECG] Stat Date of Encounter: 02/03/18 Hospital course: Mr. Montilla is a 57 year old male - Time Spent with Patient Total time spent providing and/or coordinating discharge services: Date of admission: 02/01/18 16:37 Primary care physician: Fausto Palacios MD Consults: 02/02/18 09:49 Consult to Cardiology [CONS] Routine Comment: Consulting Provider: Cardiology Soledad Reason for Consult: chest pain, elevated trops this a.m. Time Notified: 09:49 Call Completed: Yes 02/02/18 13:12 Consult to Cardiac Rehabilitation-Phase1 [CONS] Routine Comment: Reason for Consult: NSTEMI Call Completed: No 02/02/18 18:55 Consult to Cardiac Rehabilitation-Phase1 [CONS] Routine Comment: Reason for Consult: post op PCI Call Completed: Yes - Constitutional Vitals: Temp Pulse Resp BP Pulse Ox 98.3 F 71 18 122/77 98 02/03/18 08:30 02/03/18 08:30 02/03/18 08:30 02/03/18 08:30 02/03/18 08:30 - Attending Attestation I performed a [id number] diagnostic evaluation of this patient and my medical decision-making was reviewed with the Resident Physician, Dr Wes Jaimes. I agree with the documented findings, disposition and treatment plan as described except to the extent set forth below. Patient's chest pain has resolved. On exam his in no acute distress. Heart exam reveals regular rate and rhythm S1 -S2, no murmurs rubs or gallops. Plan: Patient is status post PCI. He will resume aspirin and Plavix, he will be discharged home and will have a follow-up with cardiology. Danny Vo MD
--- NOTE | 2018-02-03 10:54 | Cardiology Progress Note ---
Date of Encounter: 02/03/18 Time of Encounter: 10:30 Assessment and Plan (1) NSTEMI (non-ST elevated myocardial infarction) Current Visit: Yes Status: Resolved Per cardiology: -Troponins negative x2, then 0.27 x2. -Known CAD. -Recently stopped plavix, had met criteria to stop plavix. -S/p LHC yesterday with unofficial report reviewed with SUMIT placed to ramus. -Chest pain free. -Educated on dual anti-platelet therapy uninterrupted for at least one year, states understanding. -Right groin access site without hematoma or ecchymosis. Right groin site management education reviewed with patient. -Cardiology will sign off and will follow in outpatient setting. Follow up set. (2) CAD (coronary artery disease) Current Visit: Yes Status: Chronic Per cardiology: -Known history of CAD s/p [facility] 2014 with 90% proximal LAD with SUMIT placed x2, 80 % mid LAD, 30% distal LAD, 70% ramus stenosis, 40% mid circumflex, 50-60% left PDA, 40% proximal RCA, 40% mid RCA, RPDA with mild disease. -TTE with LVEF preserved, no segmental wall motion abnormalities. -On asa, statin, beta bart, plavix. -S/p PCI yesterday. Qualifiers: Coronary Disease-Associated Artery/Lesion type: [place] artery [place] vs. transplanted heart: [place] heart Associated angina: angina presence unspecified Qualified Code(s): I25.10 - Atherosclerotic heart disease of [place] coronary artery without angina pectoris Discussion w patient/family: The assessment and plan as outlined above was discussed with the patient and family who expressed understanding and agreement. All questions were answered. Thank you for involving us in the care of your patient. Please call with any questions. DIscussed and reviewed with . Subjective Principal diagnosis: NSTEMI Interval history: Patient denies chest pain, denies issues walking or using right leg. Objective Vital Signs, Last 4 Hours Temp Pulse Resp BP Pulse Ox 02/03/18 08:30 98.3 F 71 18 122/77 98 02/03/18 07:11 98.3 F 71 18 122/77 98 General: Conversant, No Apparent Distress HEENT: Atraumatic, Normocephaly, Mucus Membranes Moist Neck: No JVD, Normal carotid pulses Cardiac: Reg Rate and Rhythm, Normal S1 and S2, No Murmur Lungs: Normal Breath Sounds, No Wheeze, Rales, Rhonchi Neuro: Alert and responsive, No focal deficits noted Abdomen: Soft, Non-Tender Skin: No rashes noted on visualized skin, Other (Right groin access site without hematom or ecchymosis. ) Musculoskeletal: No Chest Wall Tenderness Extremities: No Clubbing, No Cyanosis, No Edema, Normal Pulses Results 02/03/18 03:50 02/03/18 03:50 Lab Results Impressions Echocardiogram 02/02/18 09:00 Impressions: LVEF 60%. Normal right ventricular structure and function. No significant valvular dysfunction. No pulmonary hypertension. Left Ventricular Wall Motion: Rest Echo Findings All wall segments showed normal motion. Findings: Study Quality * Technically adequate exam. ECG Findings * Normal sinus rhythm. Left Ventricle * LVEF 60%. * Normal LV chamber size, wall thickness and function. * Indeterminate diastolic function. Right Ventricle * Normal right ventricular structure and function. Left Atrium * Normal left atrial size. Right Atrium * Normal right atrial size. Aortic Valve * No aortic regurgitation. * Aortic valve not well visualized. * No aortic stenosis. Mitral Valve * No mitral stenosis. * Trace mitral regurgitation. * Normal mitral valve structure. Tricuspid Valve * Tricuspid valve not well visualized. * Trace tricuspid regurgitation. * Estimated RA pressure is 3 mmHg. * Estimated RVSP is 14 mmHg. * No pulmonary hypertension. Pulmonic Valve * Pulmonic valve is not well visualized. * No pulmonic stenosis. * Trace pulmonic regurgitation. Pulmonary Artery * Pulmonary artery not well visualized. Aorta * Normally sized aortic root. Pericardium * There is no pericardial effusion present. Interatrial Septum * No evidence of PFO by color Doppler. IVC * Normal IVC dimensions and inspiratory collapse. Active Medications Acetaminophen (Tylenol) 650 mg PO Q6HR PRN PRN Reason: Mild Pain/Fever Stop: 08/03/18 17:19 Aspirin (Aspirin Ec) 81 mg PO DAILY ON LICENSE OF [facility] Stop: 08/04/18 09:01 Last Admin: 02/03/18 08:23 Dose: 81 mg Atorvastatin Calcium (Lipitor) 80 mg PO HS NATALY Stop: 08/03/18 21:01 Last Admin: 02/02/18 22:57 Dose: 80 mg Clopidogrel Bisulfate (Plavix) 75 mg PO DAILY NATALY Stop: 08/04/18 09:01 Last Admin: 02/03/18 08:22 Dose: 75 mg Dextrose/Water (Dextrose 50% (Syg)) 25 ml IVP AD PRN PRN Reason: Hypoglycemia Stop: 08/03/18 17:20 Escitalopram Oxalate (Lexapro) 10 mg PO DAILY ON LICENSE OF [facility] Stop: 08/04/18 09:01 Last Admin: 02/03/18 08:22 Dose: 10 mg Folic Acid (Folic Acid) 0.4 mg PO DAILY NATALY Stop: 08/04/18 09:01 Last Admin: 02/03/18 08:22 Dose: 0.4 mg Glucagon (Glucagen) 1 mg IM ONCE PRN PRN Reason: Hypoglycemia Stop: 08/03/18 17:20 Glucose (Gluctose) 15 gm PO ONCE PRN PRN Reason: Hypoglycemia Stop: 08/03/18 17:20 Glucose (Gluctose) 30 gm PO ONCE PRN PRN Reason: Hypoglycemia Stop: 08/03/18 17:20 Lisinopril/HCTZ (Prinzide 10-12.5) 1 each PO DAILY NATALY Stop: 08/04/18 09:01 Last Admin: 02/03/18 08:22 Dose: 1 each Dextrose (Dextrose 5%) 1,000 mls @ 100 mls/hr IVC .Q10H PRN PRN Reason: HYPOGLYCEMIA Stop: 08/03/18 17:20 Insulin Detemir (Levemir) 40 unit SQ BID ON LICENSE OF [facility] Stop: 08/03/18 21:01 Last Admin: 02/03/18 08:30 Dose: 40 unit Insulin Human Lispro (Humalog) 0 units SQ HS ON LICENSE OF [facility] PRN Reason: Protocol Stop: 08/03/18 21:01 Last Admin: 02/02/18 22:30 Dose: Not Given Insulin Human Lispro (Humalog) 0 units SQ TIDAC ON LICENSE OF [facility] PRN Reason: Protocol Stop: 08/03/18 17:31 Last Admin: 02/03/18 08:23 Dose: 16 units Metoprolol Tartrate (Lopressor) 25 mg PO BID ON LICENSE OF [facility] Stop: 08/03/18 21:01 Last Admin: 02/03/18 08:22 Dose: 25 mg Multivitamins/Calcium (Thera M Plus) 1 tab PO DAILY NATALY Stop: 08/04/18 09:01 Last Admin: 02/03/18 08:22 Dose: 1 tab Naloxone HCl (Narcan) 0.4 mg IVP Q2MIN PRN PRN Reason: SEE COMMENTS Stop: 08/03/18 17:19 Nitroglycerin (Nitroglycerin) 0.4 mg SL Q5MIN PRN PRN Reason: Chest Pain Stop: 08/03/18 14:52 Last Admin: 02/01/18 15:24 Dose: 0.4 mg Omeprazole (Prilosec) 40 mg PO DAILY NATALY Stop: 08/04/18 09:01 Last Admin: 02/03/18 08:23 Dose: 40 mg Tramadol HCl (Ultram) 50 mg PO Q6H PRN PRN Reason: Moderate Pain Stop: 08/03/18 17:21 Last Admin: 02/03/18 08:24 Dose: 50 mg Laboratory Tests 02/03/18 02/03/18 03:50 03:50 Hgb 15.3 D Creatinine 0.83 - Imaging and Cardiology Chest Xray: report reviewed Echo: report reviewed Cardiac cath: report reviewed - EKG Interpretation EKG results cardiology: other (Telemetry reviewed with average HR previous 12 hours noted to be 73, SR. PVCs noted.) Consult Discharge Plan - Plan Instructions: Myocardial Infarction (DC), Chest Pain (DC), Diabetes Mellitus Type 2 in Adults (DC), Chronic Hypertension (DC) Referrals: Fausto Palacios MD [Primary Care Provider] - 02/10/18 5:00 pm
--- NOTE | 2018-02-03 18:15 | Electrocardiograph Report ---
[address] [place] [address] Test Date: 2018-02-03 Pat Name: Jorge Montilla Department: 110 Room: 2N05 Gender: M [employer]: TAMMI : 1960 Requested By: Rosalba Mathew Order Number: [id number] Reading MD: Jami Pool Measurements Intervals [place] Rate: 75 P: 37 ID: [id number] QRS: 19 QRSD: 90 T: 20 QT: 365 QTc: 394 Interpretive Statements SINUS RHYTHM PROBABLE INFERIOR MYOCARDIAL INFARCTION, PROBABLY OLD Electronically Signed On 02-03-2018 18:14:25 EDT by Jami Pool
== END 2018-02-03 11:29 | disposition home or self-care (01) ==
LOC: EMEROO 13:45 → 3BNU 13:45 → SUATTDRO 16:37 → 3BNU 18:03 → 2NNU 02-02 20:25
PROVIDERS: ADMIT Internal Medicine; ATTEND Internal Medicine